=== PATIENT | female | born 1995 | race Hispanic/Latino ===

== ENCOUNTER 2021-08-01 09:30 | Emergency (ER) | payer OTHER ==
--- OUTSIDE RECORDS SUMMARY | 2021-08-01 09:36 | XMS REPORT | Continuity of Care Document ---
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 MD Acct: [id number] Dis Date: Status: DEP ER PHONE #: [phone] Exam Date: 09/28/2019 1849 FAX #: [phone] Reason: DECREASED MOVEMENTS EXAMS: CPTCODE: [id number] US BIOPHYS PROF [id number] REASON FOR EXAM: DECREASED MOVEMENTS EXAM ORDER DATE: 09/28/2019 6:08 PM Attending M.D.: Brennen Short MD PROCEDURE: - US BIOPHYS PROF FINDINGS: The cervix is closed. heart rate is 154 beats per minute.GLENROY is 14.6. presentation is cephalic. The placenta is anterior and grade 2. breathing movement score is 2/2 (at least one episode of at least 30 seconds durationduring a 30 minute observation) gross body movement score is 2/2 (3 discrete body/limb movements in a 30 minute observation) tone score is 2/2 (at least one episode of active extension and return to flexion and 30 minutes) amniotic fluid volume scored 2/2 (at least one pocket of fluid measuring 1 CM in 2 dimensions) IMPRESSION: A single viable IUP with biophysical profile score of 8/8 Location: [facility] Reported and signed by: Ang Dorado MD CC: Brennen Short MD; Adolfo Sanders Technologist: Walter Luis Trnscb Date/Time: 09/28/2019 (1922) DamianR.RR31 Orig Print D/T: S: 09/28/2019 (1925) Probe: PAGE 1 Signed [id number] 19:10:00 Test Item Value Reference Range Interpretation Comments GLUBED (test code = 113 mg/dL 74-106 H Performe d by certified GLUBED) 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 [facility] URINALYSIS [id number] 18:59:00 Test Item Value Reference Range Interpretation Comments UA COLOR (test code = YELLOW YELLOW COLU) UA APPEARANCE (test code Cloudy CLEAR A = APPU) UA GLUCOSE DIPSTICK (test NEGATIVE mg/dL NEGATIVE code = DGLUU) UA BILIRUBIN DIPSTICK NEGATIVE mg/dL NEGATIVE (test code = BILU) UA KETONE DIPSTICK (test NEGATIVE mg/dL NEGATIVE code = KETU) UA SPECIFIC GRAVITY (test 1.021 1.001-1.035 code = SGU) UA BLOOD DIPSTICK (test Negative mg/dL NEGATIVE code = LILIAM) UA PH DIPSTICK (test code 6.0 5.0-8.0 = PORFIRIO) UA PROTEIN DIPSTICK (test 70 (1+) mg/dL NEGATIVE A code = PROU) UA UROBILINIOGEN DIPSTICK Normal mg/dL NEGATIVE (test code = URO) UA NITRITE DIPSTICK (test NEGATIVE NEGATIVE code = KAY) UA LEUKOCYTE ESTERASE W 75 Viri/uL (1+) NEGATIVE A REFLEX (test code = Viri/uL LEUUR) UA WBC (test code = WBCU) 0-5 per HPF 0-5 UA RBC (test code = RBCU) 3-5 #/HPF 0-5 UA EPITHELIAL CELLS (test MANY per HPF FEW code = EPIU) UA BACTERIA (test code = MODERATE #/HPF NONE A BACU) UA MUCUS (test code = MODERATE #/LPF FEW A MUCU) UA AMORPHOUS SEDIMENT FEW #/LPF NONE (test code = AMORU) URINALYSIS [id number] 18:53:00 Test Item Value Reference Range Interpretation Comments UA COLOR (test code = YELLOW YELLOW COLU) UA APPEARANCE (test code Cloudy CLEAR A = APPU) UA GLUCOSE DIPSTICK (test NEGATIVE mg/dL NEGATIVE code = DGLUU) UA BILIRUBIN DIPSTICK NEGATIVE mg/dL NEGATIVE (test code = BILU) UA KETONE DIPSTICK (test NEGATIVE mg/dL NEGATIVE code = KETU) UA SPECIFIC GRAVITY (test 1.021 1.001-1.035 code = SGU) UA BLOOD DIPSTICK (test Negative mg/dL NEGATIVE code = LILIAM) UA PH DIPSTICK (test code 6.0 5.0-8.0 = PORFIRIO) UA PROTEIN DIPSTICK (test 70 (1+) mg/dL NEGATIVE A code = PROU) UA UROBILINIOGEN DIPSTICK Normal mg/dL NEGATIVE (test code = URO) UA NITRITE DIPSTICK (test NEGATIVE NEGATIVE code = KAY) UA LEUKOCYTE ESTERASE W 75 Viri/uL (1+) NEGATIVE A REFLEX (test code = Viri/uL LEUUR) UA WBC (test code = WBCU) per HPF 0-5 UA RBC (test code = RBCU) per HPF 0-5 UA EPITHELIAL CELLS (test per HPF Few code = EPIU) UA BACTERIA (test code = per HPF NONE BACU) URINALYSIS [id number] 18:53:00 Test Item Value Reference Range Interpretation Comments UA COLOR (test code = YELLOW YELLOW COLU) UA APPEARANCE (test code Cloudy CLEAR A = APPU) UA GLUCOSE DIPSTICK (test NEGATIVE mg/dL NEGATIVE code = DGLUU) UA BILIRUBIN DIPSTICK NEGATIVE mg/dL NEGATIVE (test code = BILU) UA KETONE DIPSTICK (test NEGATIVE mg/dL NEGATIVE code = KETU) UA SPECIFIC GRAVITY (test 1.021 1.001-1.035 code = SGU) UA BLOOD DIPSTICK (test Negative mg/dL NEGATIVE code = LILIAM) UA PH DIPSTICK (test code 6.0 5.0-8.0 = PORFIRIO) UA PROTEIN DIPSTICK (test 70 (1+) mg/dL NEGATIVE A code = PROU) UA UROBILINIOGEN DIPSTICK Normal mg/dL NEGATIVE (test code = URO) UA NITRITE DIPSTICK (test NEGATIVE NEGATIVE code = KAY) UA LEUKOCYTE ESTERASE W 75 Viri/uL (1+) NEGATIVE A REFLEX (test code = Viri/uL LEUUR) UA WBC (test code = WBCU) per HPF 0-5 UA RBC (test code = RBCU) per HPF 0-5 UA EPITHELIAL CELLS (test per HPF Few code = EPIU) UA BACTERIA (test code = per HPF NONE BACU) CBC W/AUTO [id number] 18:47:00 Test Item Value Reference Range Interpretation Comments WHITE BLOOD CELL (test code = 12.1 K/mm3 4.5-12.5 N WBC) RED BLOOD CELL (test code = 4.75 mill/mm3 3.7-5.2 N RBC) HEMOGLOBIN (test code = HGB) 11.5 gram/dL 11.5-15.5 N HEMATOCRIT (test code = HCT) 36.7 % 36.0-46.0 N MEAN CELL VOLUME (test code = 77.3 fL 80-98 L MCV) MEAN CELL HGB (test code = MCH) 24.2 picogram 27.0-33.0 L MEAN CELL HGB CONCETRATION 31.3 gram/dL 33.0-36.0 L (test code = MCHC) RED CELL DISTRIBUTION WIDTH 15.2 % 11.6-16.2 N (test code = RDW) RED CELL DISTRIBUTION WIDTH SD 42.0 fL 37.0-51.0 N (test code = RDW-SD) PLATELET COUNT (test code = 252 K/mm3 150-450 N PLT) MEAN PLATELET VOLUME (test code 9.6 fL 6.7-11.0 N = MPV) NEUTROPHIL % (test code = NT%) 79.8 % 39.0-69.0 H IMMATURE GRANULOCYTE % (test 0.5 % 0.0-5.0 N code = IG%) LYMPHOCYTE % (test code = LY%) 14.6 % 25.0-55.0 L MONOCYTE % (test code = MO%) 4.4 % 0.0-10.0 N EOSINOPHIL % (test code = EO%) 0.5 % 0.0-5.0 N BASOPHIL % (test code = BA%) 0.2 % 0.0-1.0 N NUCLEATED RBC % (test code = 0.0 % 0-0 N NRBC%) NEUTROPHIL # (test code = NT#) 9.66 K/mm3 1.8-7.7 H IMMATURE GRANULOCYTE # (test 0.06 x10 3/uL 0-0.03 H code = IG#) LYMPHOCYTE # (test code = LY#) 1.77 K/mm3 1.0-5.0 N MONOCYTE # (test code = MO#) 0.53 K/mm3 0-0.8 N EOSINOPHIL # (test code = EO#) 0.06 K/mm3 0.0-0.5 N BASOPHIL # (test code = BA#) 0.02 K/mm3 0.0-0.2 N NUCLEATED RBC # (test code = 0.00 K/mm3 0.0-0.1 N NRBC#) CBC W/AUTO [id number] 18:46:00 Test Item Value Reference Range Interpretation Comments WHITE BLOOD CELL (test code = K/mm3 4.5-12.5 WBC) RED BLOOD CELL (test code = RBC) mill/mm3 3.7-5.2 HEMOGLOBIN (test code = HGB) 11.5 gram/dL 11.5-15.5 N HEMATOCRIT (test code = HCT) 36.7 % 36.0-46.0 N MEAN CELL VOLUME (test code = fL 80-98 MCV) MEAN CELL HGB (test code = MCH) picogram 27.0-33.0 MEAN CELL HGB CONCETRATION (test gram/dL 33.0-36.0 code = MCHC) RED CELL DISTRIBUTION WIDTH % 11.6-16.2 (test code = RDW) RED CELL DISTRIBUTION WIDTH SD fL 37.0-51.0 (test code = RDW-SD) PLATELET COUNT (test code = PLT) 252 K/mm3 150-450 N MEAN PLATELET VOLUME (test code fL 6.7-11.0 = MPV) NEUTROPHIL % (test code = NT%) % 39.0-69.0 IMMATURE GRANULOCYTE % (test % 0.0-5.0 code = IG%) LYMPHOCYTE % (test code = LY%) % 25.0-55.0 MONOCYTE % (test code = MO%) % 0.0-10.0 EOSINOPHIL % (test code = EO%) % 0.0-5.0 BASOPHIL % (test code = BA%) % 0.0-1.0 NEUTROPHIL # (test code = NT#) K/mm3 1.8-7.7 LYMPHOCYTE # (test code = LY#) K/mm3 1.0-5.0 MONOCYTE # (test code = MO#) K/mm3 0-0.8 EOSINOPHIL # (test code = EO#) K/mm3 0.0-0.5 BASOPHIL # (test code = BA#) K/mm3 0.0-0.2 Coronavirus 2019 [id number] 15:43:00 Test Item Value Reference Range Interpretation Comments Coronavirus 2019 Confirmation (test Negative Negative code = [id number]) Coronavirus 2019 [id number] 15:43:00 Test Item Value Reference Range Interpretation Comments Coronavirus 2019 Confirmation (test Negative Negative code = [id number]) [id number] 11:59:00 Test Item Value Reference Range Interpretation Comments GLUBED (test code = 89 mg/dL 74-106 N Performe d by certified GLUBED) 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 [facility] [id number] 08:43:00 Test Item Value Reference Range Interpretation Comments GLUBED (test code = 99 mg/dL 74-106 N Performe d by certified GLUBED) 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 [facility] [id number] 06:31:00 Test Item Value Reference Range Interpretation Comments GLUBED (test code = 90 mg/dL 74-106 N Performe d by certified GLUBED) 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 [facility] - US BIOPHYS [id number] 19:26:00 Name: VALERIANO FAULKNER [facility] : 1995 Age[facility]S: 24 [facility] [address] [facility] Unit #: [id number] Loc: [place] [address] Phys: Hal Yo MD Acct: [id number] Dis Date: [id number] Status: DIS IN PHONE #: [phone] Exam Date: 09/16/2019 1841 FAX #: [phone] Reason: 33w EXAMS: CPTCODE: [id number] US BIOPHYS PROF [id number] REASON FOR EXAM: 33w EXAM ORDER DATE: 09/16/2019 6:05 PM Ordering: Hal Yo MD Attending:Adolfo Sanders MD Location:[facility] PROCEDURE: - US BIOPHYS PROF FINDINGS: The cervix is closed with the cervical canal length measured 4.2 cm heart rate is 150 beats per minute. GLENROY is 14.9 c m. presentation is cephalic. The placenta is anterior and is of grade 3. breathing movement score is 2/2 (at least one episode of at least 30 seconds duration during a 30 minute observation) gross body movement score is 2/2 (3 discrete body/limb movements in a 30 minute observation) tone score is 2/2 (at least one episode of active extension and return to flexion and 30 minutes) amniotic fluid volume scored 2/2 (at least one pocket of fluid measuring 1 CM in 2 dimensions) IMPRESSION: A single viable IUP with biophysical profile score of 8/8 at 192 Reported and signed by: Pramod Barton M.D.CC: Hal Yo MD; Adolfo Sanders Technologist: Jessica Flood RDMS Trnscb Date/Time: 09/16/2019 (1925) tDU Orig Print D/T: S: 09/16/2019 (1928) Probe: PAGE 1 Signed Report- US BIOPHYS [id number] 19:26:00 Name: VALERIANO FAULKNER [facility] : 1995 Age/S: 24 / F [address] Unit #: [id number] Loc: [place] [address] Phys: Hal Yo MD Acct: [id number] Dis Date: Status: ADM IN PHONE #: [phone] Exam Date: 09/16/2019 1841 FAX #: [phone] Reason: 33w EXAMS: CPTCODE: [id number] US BIOPHYS PROF [id number] REASON FOR EXAM: 33w EXAM ORDER DATE: 09/16/2019 6:05 PM Ordering: Hal Yo MD Attending:Adolfo Sanders MD Location:[facility] PROCEDURE: - US BIOPHYS PROF FINDINGS: The cervix is closed with the cervical canal length measured 4.2 cm heart rate is 150 beats per minute. GLENROY is 14.9 cm. presentation is cephalic. The placenta is anterior and is of grade 3. breathing movement score is 2/2 (at least one episode of at least 30 seconds duration during a 30 minute observation) gross body movement score is 2/2 (3 discrete body/limb movements in a 30 minute observation) tone score is 2/2 (at least one episode of active extension and return to flexion and 30 minutes) amniotic fluid volume scored 2/2 (at least one pocket of fluid measuring 1 CM in 2 dimensions) IMPRESSION: A single viable IUP with biophysical profile score of 8/8 at 1926 Reported and signed by: Pramod Barton M.D.CC: Hal Yo MD; Adolfo Sanders Technologist: Jessica Flood RDMS Trnscb Date/Time: 09/16/2019 (1925) [email or web address] Orig Print D/T: S: 09/16/2019 (1928) Probe: PAGE 1 Signed Report- XR CHEST 1 [id number] 16:12:00 FAX: Prakash Conn MD [phone] [place]: B St: DIS FAX: Stephanie Myers [phone] Name: VALERIANO FAULKNER [facility] : 1995 Age/S: 24/F [address] Unit #: [id number] Loc: V.2006 [place] [address] Phys: Prakash Conn MD Acct: [id number] Dis Date: [id number] Status: DIS IN PHONE #: [phone] Exam Date: 09/16/2019 1607 FAX #: [phone] Reason: Shortness of Breath EXAMS: CPT CODE: [id number] XR CHEST 1 V [id number] REASON FOR EXAM: Shortness of Breath EXAM ORDER DATE: 09/16/2019 2:41 PM Ordering: Prakash Conn MD Attending:Prakash Conn MD Location:[facility] PROCEDURE: - XR CHEST 1 V COMPARISON: FINDINGS: Portable AP frontal view of the chest obtained at 4:07 PM shows clear lungs without evidence of consolidation. There is no evidence of effusion. The heart size is within normal limits. Pulmonary vasculatures are unremarkable. IMPRESSION: No active disease. at 1612 Reported and signed by: Pramod Barton M.D. CC: Prakash Conn MD; Adolfo Sanders Technologist: Kelly Dallas(R) Trnscrd Date/Time/By: 09/16/2019 (706) : By: JenniferVTL Orig Print D/T: S: 09/16/2019 (3329) PAGE 1 Signed Report- XR CHEST 1 [id number] 16:12:00 FAX: Praaksh Conn MD [phone] [place]: B St: REG FAX: Stephanie Myers [phone] Name: VALERIANO FAULKNER [facility] : 1995 Age/S: 24/F [address] [facility] Unit #: [id number] Loc: [place] [address] Phys: Prakash Conn MD Acct: [id number] Dis Date: Status: REG ER PHONE #: [phone] Exam Date: 09/16/2019 1607 FAX #: [phone] Reason: Shortness of Breath EXAMS: CPT CODE: [id number] XR CHEST 1 V [id number] REASON FOR EXAM: Shortness of Breath EXAM ORDER DATE: 09/16/2019 2:41 PM Ordering: Prakash Conn MD Attending:Prakash Conn MD Location:[facility] PROCEDURE: - XR CHEST 1 V COMPARISON: FINDINGS: Portable AP frontal view of the chest obtained at 4:07 PM shows clear lungs without evidence of consolidation. There is no evidence of effusion. The heart size is within normal limits. Pulmonary vasculatures are unremarkable. IMPRESSION: No active disease. at 1612 Reported and signed by: Pramod Barton M.D. CC: Prakash Conn MD; Adolfo Sanders Technologist: Kelly Dallas(R) Trnscrd Date/Time/By: 09/16/2019 (9692) : By: JenniferVTL Orig Print D/T: S: 09/16/2019 (6996) PAGE 1 Signed ReportB-TYPE NATRIURETIC [id number] 16:08:00 Test Item Value Reference Range Interpretation Comments B-TYPE NATRIURETIC PEPTIDE 23.89 pgram/mL 0-100 N (test code = BNP) BASIC METABOLIC [id number] 16:06:00 Test Item Value Reference Range Interpretation Comments SODIUM (test code = 141 mmol/L 136-145 N NA) POTASSIUM (test code 3.6 mmol/L 3.5-5.1 N = K) CHLORIDE (test code = 111.0 mmol/L 98-107 H CL) CARBON DIOXIDE (test 22.0 mmol/L 21-32 N code = CO2) ANION GAP (test code 11.6 10-20 N = GAP) GLUCOSE (test code = 127 mg/dL 74-106 H GLU) BLOOD UREA NITROGEN 7 mg/dL 7-18 N (test code = BUN) GLOMERULAR FILTRATION > 60 mL/min >=60 Estima octavio GFR by RATE (test code = using Ray fied MDRD GFR) formula.Chronic kidney disease is defined as eith er kidney damageor GFR <60 mL/min/1.73 m2 for >3 months. CREATININE (test code 0.50 mg/dL 0.55-1.02 L Note change in = CREAT) reference range due to change in reagent. BUN/CREATININE RATIO 13.2 10-20 N (test code = BUN/CREA) CALCIUM (test code = 8.7 mg/dL 8.5-10.1 N CA) HCG SERUM [id number] 16:06:00 Test Item Value Reference Range Interpretation Comments HCG SERUM BETA 8239.0 mIU/mL 0-3 H Interfering substances (test code = present in the serum of HCG) somepatients ma y cause a false-positive result in this assay.Ques tionable elevations in s maria r hCG should be confi rmedwith a urine hCG. Lenz spected Trophoblastic N eoplasms shouldnot be di agnosed based on serun hCG/beta hCG alone. They must be confirmed by cl inical history and tis ankit diagnosis.INTER PRETATION :B-HCG LEVELS < 5 SHOULD BE CONSIDERED A S "NEGATIVE." *WH EN BODERLINE RESUL TS ARE ENCOUNTERED,PAT IENT SAMPLESSHOULD B E REDRAWN 48 HOURS. 0-1 WEEKS AFTER CONCEPTIO N 5-50 MIU/ML1-2 WEEKS AFTER CONCEPTION 50-500 MIU/ ML2-3 WEEKS AFTER CON CEPTION 100 - 5,000 MIU/ML3-4 WEEKS AFTER CONCEPTION 500-10,000 MIU /ML4-5 WEEKS AFTER CON CEPTION 1000 -50 ,000 MIU/ML5-6 WEEKS AFTER CONCEPTION 10,000-100,000 MIU/ML6-8 WEEKS AFTER CONCEPTION 15,000- 200,000 MIU/ML2-3 MONTH S AFTER CONCEPTION 10,000-100,000 MIU/ML [id number] 16:06:00 Test Item Value Reference Range Interpretation Comments TROPONIN-I (test code = TROPI) <0.015 ng/mL 0-0.045 N [id number] 15:54:00 Test Item Value Reference Range Interpretation Comments D-DIMER (test 851.00 ng/mLFEU 0-500 HH Results jaison led to code = DDIMER) EVLIRA EncinasLAB.HD1 09/16/19 1554Cr itical results verifie d and read back by Nurse? YClinical Cut-off value f or D-Dimer is 500 ng/mL FE U. Comment: The In novance D-Dimer assay i s intended for use asan ai d in the diagnosis of ve nous thromboembolism (VTE)[deep vein thrombosis (DVT ) or pulmonary embol ism (PE)].The measu rement of D-Dimer should not be used as an aid inthe diagnosis of VT E, in patient with: -Therapeutic do se anticoagulant t herapy for >24 hours -Fib rinolytic therapy within previous 7 days -Trauma o r surgery within previous 4 weeks -Disseminated malignancies - Aortic aneurysm -Seps is, severe infections, pne umonia, severe skin i nfections -Liver cirrhosi s - LACTIC [id number] 15:52:00 Test Item Value Reference Range Interpretation Comments LACTIC ACID (test code = LACT) 1.1 mmol/L 0.4-1.9 N BASIC METABOLIC [id number] 15:49:00 Test Item Value Reference Range Interpretation Comments SODIUM (test code = NA) 141 mmol/L 136-145 N POTASSIUM (test code = K) 3.6 mmol/L 3.5-5.1 N CHLORIDE (test code = CL) 111.0 mmol/L 98-107 H CARBON DIOXIDE (test code = CO2) mmol/L 21-32 ANION GAP (test code = GAP) 10-20 GLUCOSE (test code = GLU) mg/dL 74-106 BLOOD UREA NITROGEN (test code = mg/dL 7-18 BUN) GLOMERULAR FILTRATION RATE (test mL/min >=60 code = GFR) CREATININE (test code = CREAT) mg/dL 0.55-1.02 BUN/CREATININE RATIO (test code 10-20 = BUN/CREA) CALCIUM (test code = CA) mg/dL 8.5-10.1 HCG SERUM [id number] 15:49:00 Test Item Value Reference Range Interpretation Comments HCG SERUM BETA (test code = HCG) mIU/mL 0-3 [id number] 15:49:00 Test Item Value Reference Range Interpretation Comments TROPONIN-I (test code = TROPI) ng/mL 0-0.045 COVID 19 INHOUSE [id number] 15:37:00 Test Item Value Reference Range Interpretation Comments COVID 19 INHOUSE AG (test code = NEGATIVE [id number]) CBC W/O [id number] 15:36:00 Test Item Value Reference Range Interpretation Comments WHITE BLOOD CELL (test code = 10.4 K/mm3 4.5-12.5 N WBC) RED BLOOD CELL (test code = 4.33 mill/mm3 3.7-5.2 N RBC) HEMOGLOBIN (test code = HGB) 10.5 gram/dL 11.5-15.5 L HEMATOCRIT (test code = HCT) 33.1 % 36.0-46.0 L MEAN CELL VOLUME (test code = 76.4 fL 80-98 L MCV) MEAN CELL HGB (test code = MCH) 24.2 picogram 27.0-33.0 L MEAN CELL HGB CONCETRATION 31.7 gram/dL 33.0-36.0 L (test code = MCHC) RED CELL DISTRIBUTION WIDTH 14.9 % 11.6-16.2 N (test code = RDW) PLATELET COUNT (test code = 242 K/mm3 150-450 N PLT) MEAN PLATELET VOLUME (test code 9.9 fL 6.7-11.0 N = MPV) CBC W/O [id number] 15:31:00 Test Item Value Reference Range Interpretation Comments WHITE BLOOD CELL (test code = WBC) K/mm3 4.5-12.5 RED BLOOD CELL (test code = RBC) mill/mm3 3.7-5.2 HEMOGLOBIN (test code = HGB) gram/dL 11.5-15.5 HEMATOCRIT (test code = HCT) % 36.0-46.0 MEAN CELL VOLUME (test code = MCV) fL 80-98 MEAN CELL HGB (test code = MCH) picogram 27.0-33.0 MEAN CELL HGB CONCETRATION (test gram/dL 33.0-36.0 code = MCHC) RED CELL DISTRIBUTION WIDTH (test % 11.6-16.2 code = RDW) PLATELET COUNT (test code = PLT) 242 K/mm3 150-450 N MEAN PLATELET VOLUME (test code = fL 6.7-11.0 MPV) COVID 19 Asymptomatic IH [id number] 13:39:00 Test Item Value Reference Range Interpretation Comments COVID 19 Asymptomatic IH AG (test NEGATIVE code = COVNONPUIAG) - US BIOPHYS [id number] 12:02:00 Name: VALERIANO FAULKNER [facility] : 1995 Age[facility]S: 23 [facility] [address] [facility] #: [id number] Loc: [place] [address] Phys: Hal Yo MD Acct: [id number] Dis Date: Status: [facility] ER PHONE #: [phone] Exam Date: 08/15/2019 1150 FAX #: [phone] Reason: 29w EXAMS: CPTCODE: [id number] US BIOPHYS PROF [id number] HISTORY: Vomiting. COMPARISON: April 08, 2019. Location: [facility]. 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 GLENROY is normal at 16 cm. IMPRESSION: Normal biophysical profile score of 8 out of 8 with normal GLENROY of 16 cm. Cephalic presentation. at 1202 Reported and signed by: Christopher Rand M.D. CC: Hal Yo MD; Adolfo Sanders Technologist: CASEY DAVID RT(R),RDMS Trnnhb Date/Time: 08/15/2019 (1202) t.SDR.TH4 Orig Print D/T: S: 08/15/2019 (1205) Probe: PAGE 1 Signed Report- US BIOPHYS [id number] 12:02:00 Name: VALERIANO FAULKNER [facility] : 1995 Age/S: 23 / F [address] Unit #: [id number] Loc: [place] [address] Phys: Hal Yo MD Acct: [id number] Dis Date: Status: [facility] ER PHONE #: [phone] Exam Date: 08/15/2019 1150 FAX #: [phone] Reason: 29w EXAMS: CPTCODE: [id number] US BIOPHYS PROF [id number] HISTORY: Vomiting. COMPARISON: April 08, 2019. Location: [facility]. 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 GLENROY is normal at 16 cm. IMPRESSION: Normal biophysical profile score of 8 out of 8 with normal GLENROY of 16 cm. Cephalic presentation. at 1202 Reported and signed by: Christopher Rand M.D. CC: Hal Yo MD; Adolfo Sanders Technologist: CASEY DAVID(R),DUKEMN Trnnhb Date/Time: 08/15/2019 (1202) t.MIMIR.TH4 Orig Print D/T: S: 08/15/2019 (1131) Probe: PAGE 1 Signed ReportCOMPREHENSIVE METABOLIC [id number] 11:55:00 Test Item Value Reference Range Interpretation Comments SODIUM (test code = 137 mmol/L 136-145 N NA) POTASSIUM (test code = 4.1 mmol/L 3.5-5.1 N K) CHLORIDE (test code = 107.0 mmol/L 98-107 N CL) CARBON DIOXIDE (test 22.0 mmol/L 21-32 N code = CO2) ANION GAP (test code = 12.1 10-20 N GAP) GLUCOSE (test code = 123 mg/dL 74-106 H GLU) BLOOD UREA NITROGEN 11 mg/dL 7-18 N (test code = BUN) GLOMERULAR FILTRATION > 60 mL/min >=60 Estima octavio GFR by RATE (test code = GFR) using Modified MDRD formula.Chronic kidney disease is defined as eith er kidney damageor GFR <60 mL/min/1.73 m2 for >3 months. CREATININE (test code 0.60 mg/dL 0.55-1.02 N Note change in = CREAT) reference range due to change in reagent. BUN/CREATININE RATIO 16.9 10-20 N (test code = BUN/CREA) TOTAL PROTEIN (test 6.6 gram/dL 6.4-8.2 N code = PROT) ALBUMIN (test code = 2.4 g/dL 3.4-5.0 L ALB) GLOBULIN (test code = 4.2 gram/dL 2.7-4.2 N GLOB) ALBUMIN/GLOBULIN RATIO 0.6 0.75-1.50 L (test code = A/G) CALCIUM (test code = 9.0 mg/dL 8.5-10.1 N CA) BILIRUBIN TOTAL (test 0.10 mg/dL 0.0-1.0 N code = BILT) SGOT/AST (test code = 13 IUnit/L 15-37 L AST) SGPT/ALT (test code = 15 IUnit/L 12-78 N ALT) ALKALINE PHOSPHATASE 82 IUnit/L 45-117 N Note change in TOTAL (test code = reference range due ALKP) to change in reagent. COMPREHENSIVE METABOLIC [id number] 11:45:00 Test Item Value Reference Range Interpretation Comments SODIUM (test code = NA) 137 mmol/L 136-145 N POTASSIUM (test code = K) 4.1 mmol/L 3.5-5.1 N CHLORIDE (test code = CL) 107.0 mmol/L 98-107 N CARBON DIOXIDE (test code = CO2) mmol/L 21-32 ANION GAP (test code = GAP) 10-20 GLUCOSE (test code = GLU) mg/dL 74-106 BLOOD UREA NITROGEN (test code = mg/dL 7-18 BUN) GLOMERULAR FILTRATION RATE (test mL/min >=60 code = GFR) CREATININE (test code = CREAT) mg/dL 0.55-1.02 BUN/CREATININE RATIO (test code 10-20 = BUN/CREA) TOTAL PROTEIN (test code = PROT) gram/dL 6.4-8.2 ALBUMIN (test code = ALB) g/dL 3.4-5.0 GLOBULIN (test code = GLOB) gram/dL 2.7-4.2 ALBUMIN/GLOBULIN RATIO (test 0.75-1.50 code = A/G) CALCIUM (test code = CA) mg/dL 8.5-10.1 BILIRUBIN TOTAL (test code = mg/dL 0.0-1.0 BILT) SGOT/AST (test code = AST) IUnit/L 15-37 SGPT/ALT (test code = ALT) IUnit/L 12-78 ALKALINE PHOSPHATASE TOTAL (test IUnit/L 45-117 code = ALKP) CBC W/AUTO [id number] 11:43:00 Test Item Value Reference Range Interpretation Comments WHITE BLOOD CELL (test code = 16.9 K/mm3 4.5-12.5 H WBC) RED BLOOD CELL (test code = 4.58 mill/mm3 3.7-5.2 N RBC) HEMOGLOBIN (test code = HGB) 11.4 gram/dL 11.5-15.5 L HEMATOCRIT (test code = HCT) 35.3 % 36.0-46.0 L MEAN CELL VOLUME (test code = 77.1 fL 80-98 L MCV) MEAN CELL HGB (test code = MCH) 24.9 picogram 27.0-33.0 L MEAN CELL HGB CONCETRATION 32.3 gram/dL 33.0-36.0 L (test code = MCHC) RED CELL DISTRIBUTION WIDTH 14.2 % 11.6-16.2 N (test code = RDW) RED CELL DISTRIBUTION WIDTH SD 39.2 fL 37.0-51.0 N (test code = RDW-SD) PLATELET COUNT (test code = 270 K/mm3 150-450 N PLT) MEAN PLATELET VOLUME (test code 10.4 fL 6.7-11.0 N = MPV) NEUTROPHIL % (test code = NT%) 83.4 % 39.0-69.0 H IMMATURE GRANULOCYTE % (test 0.5 % 0.0-5.0 N code = IG%) LYMPHOCYTE % (test code = LY%) 11.4 % 25.0-55.0 L MONOCYTE % (test code = MO%) 3.8 % 0.0-10.0 N EOSINOPHIL % (test code = EO%) 0.7 % 0.0-5.0 N BASOPHIL % (test code = BA%) 0.2 % 0.0-1.0 N NUCLEATED RBC % (test code = 0.0 % 0-0 N NRBC%) NEUTROPHIL # (test code = NT#) 14.08 K/mm3 1.8-7.7 H IMMATURE GRANULOCYTE # (test 0.09 x10 3/uL 0-0.03 H code = IG#) LYMPHOCYTE # (test code = LY#) 1.93 K/mm3 1.0-5.0 N MONOCYTE # (test code = MO#) 0.64 K/mm3 0-0.8 N EOSINOPHIL # (test code = EO#) 0.12 K/mm3 0.0-0.5 N BASOPHIL # (test code = BA#) 0.03 K/mm3 0.0-0.2 N NUCLEATED RBC # (test code = 0.00 K/mm3 0.0-0.1 N NRBC#) MANUAL DIFF REQUIRED (test code NO = MDIFF) [id number] 16:03:00 RUN DATE: 04/11/19 [employer] [facility] PAGE 1 RUN TIME: 1603 Specimen Inquiry RUN USER: INTERFACE PATIENT: VALERIANO FAULKNER LOC: KyreeOBS U #: [id number] AGE/SX: ROOM: [facility] RE04/10/19[facility] DR: Tisha Vicente MD : 96 BED: A DIS: 04/11/19 STATUS: DIS IN TLOC: SPEC #: [id number] RECD: 04/10/19 STATUS: BOWEN REQ #: [id number] CYNTHIA: 04/09/19-[address] [facility] [address]: Tisha Vicente MD ENTERED: 04/10/19 SP TYPE: YOSELIN PAIGE DR: No Primary or Family Physician Ruddy Coppola MD,Adolfo Verma MD, MDORDERED: GROSS COPIES TO: No Primary or Family Physician Tisha Vicente MD [address] [place] [address], [place] [address] Ruddy Coppola MD [address] [place] [address] Rakesh Stout MD [address] [place], [place] [address] Adolfo Sanders MD [address] [place] [address] MARKERS: ABNORMAL TISSUE, GALLBLADDER PROCEDURES: GROSS (04/11/19-144) TISSUES: GALLBLADDER, NOS CLINICAL HISTORY COLLECTION DATE: 04/09/19 CHOLECYSTITIS CONTINUED ON NEXT PAGE RUN DATE: 04/11/19 [employer]aphne [employer] [facility] PAGE 2 RUN TIME: 1603 Specimen Inquiry RUN USER: INTERFACE SPEC #: [id number] PATIENT: VALERIANO FAULKNER #[id number] (Continued)--------- --- FINAL DIAGNOSIS Gallbladder, cholecystectomy: CHRONIC CHOLECYSTITIS CHOLESTEROLOSIS CHOLELITHIASIS NEGATIVE FOR MALIGNANCY FA/sm A 21621 MACROSCOPIC The specimen is received in formalin, labeled with the patient's name, and identified as "gallbladder". It consists of a previously opened gallbladder measuring 6.5 cm in length and up to 2.5 cm in diameter. There is a gallstone measuring 1.5 cm in greatest dimension. No impacted stone in the cystic duct is present. The specimen is opened to reveal joseph light green mucosa with yellow streaks. The wall thickness is up to 0.5 cm. No mass is identified. Cement Block Maker section including cystic duct margin is submitted in a single cassette. GROSS PERFORMED AT [facility] [address] [place] [address] (p)[phone] MICROSCOPIC All of the stains, including any controls performed, stain appropriately. MICROSCOPIC PERFORMED AT [facility] [address] [place] [address] [phone])[phone] PERFORMING SITE Diagnosis performedat: [facility], [place] [address] [place], [place] [address] CONTINUED ON NEXT PAGE RUN DATE: 04/11/19 [facility] PAGE 3RUN TIME: 1603 Specimen Inquiry RUN USER: INTERFACE SPEC #: [id number] PATIENT: VALERIANO FAULKNER #[id number] (Continued) Signed SIGNATURE ON FILE Festus Otero MD 04/11/19 1603 END OF REPORT COMPREHENSIVE METABOLIC [id number] 06:02:00 Test Item Value Reference Range Interpretation Comments SODIUM (test code = 141 mmol/L 136-145 N NA) POTASSIUM (test code = 3.5 mmol/L 3.5-5.1 N K) CHLORIDE (test code = 110.0 mmol/L 98-107 H CL) CARBON DIOXIDE (test 24.0 mmol/L 21-32 N code = CO2) ANION GAP (test code = 10.5 10-20 N GAP) GLUCOSE (test code = 103 mg/dL 74-106 N GLU) BLOOD UREA NITROGEN 8 mg/dL 7-18 N (test code = BUN) GLOMERULAR FILTRATION > 60 mL/min >=60 Estima octavio GFR by RATE (test code = GFR) using Modified MDRD formula.Chronic kidney disease is defined as eith er kidney damageor GFR <60 mL/min/1.73 m2 for >3 months. CREATININE (test code 0.60 mg/dL 0.55-1.02 N Note change in = CREAT) reference range due to change in reagent. BUN/CREATININE RATIO 13.3 10-20 N (test code = BUN/CREA) TOTAL PROTEIN (test 6.0 gram/dL 6.4-8.2 L code = PROT) ALBUMIN (test code = 2.4 g/dL 3.4-5.0 L ALB) GLOBULIN (test code = 3.6 gram/dL 2.7-4.2 N GLOB) ALBUMIN/GLOBULIN RATIO 0.7 0.75-1.50 L (test code = A/G) CALCIUM (test code = 7.7 mg/dL 8.5-10.1 L CA) BILIRUBIN TOTAL (test 0.20 mg/dL 0.0-1.0 N code = BILT) SGOT/AST (test code = 15 IUnit/L 15-37 N AST) SGPT/ALT (test code = 20 IUnit/L 12-78 N ALT) ALKALINE PHOSPHATASE 44 IUnit/L 45-117 L Note change in TOTAL (test code = reference range due ALKP) to change in reagent. CBC W/AUTO [id number] 05:51:00 Test Item Value Reference Range Interpretation Comments WHITE BLOOD CELL (test code = 10.4 K/mm3 4.5-12.5 N WBC) RED BLOOD CELL (test code = 3.65 mill/mm3 3.7-5.2 L RBC) HEMOGLOBIN (test code = HGB) 9.5 gram/dL 11.5-15.5 L HEMATOCRIT (test code = HCT) 29.4 % 36.0-46.0 L MEAN CELL VOLUME (test code = 80.5 fL 80-98 N MCV) MEAN CELL HGB (test code = MCH) 26.0 picogram 27.0-33.0 L MEAN CELL HGB CONCETRATION 32.3 gram/dL 33.0-36.0 L (test code = MCHC) RED CELL DISTRIBUTION WIDTH 13.7 % 11.6-16.2 N (test code = RDW) RED CELL DISTRIBUTION WIDTH SD 39.3 fL 37.0-51.0 N (test code = RDW-SD) PLATELET COUNT (test code = 215 K/mm3 150-450 PLT) MEAN PLATELET VOLUME (test code 10.2 fL 6.7-11.0 N = MPV) NEUTROPHIL % (test code = NT%) 66.9 % 39.0-69.0 N IMMATURE GRANULOCYTE % (test 0.4 % 0.0-5.0 N code = IG%) LYMPHOCYTE % (test code = LY%) 26.4 % 25.0-55.0 N MONOCYTE % (test code = MO%) 5.6 % 0.0-10.0 N EOSINOPHIL % (test code = EO%) 0.4 % 0.0-5.0 N BASOPHIL % (test code = BA%) 0.3 % 0.0-1.0 N NUCLEATED RBC % (test code = 0.0 % 0-0 N NRBC%) NEUTROPHIL # (test code = NT#) 6.93 K/mm3 1.8-7.7 N IMMATURE GRANULOCYTE # (test 0.04 x10 3/uL 0-0.03 H code = IG#) LYMPHOCYTE # (test code = LY#) 2.74 K/mm3 1.0-5.0 N MONOCYTE # (test code = MO#) 0.58 K/mm3 0-0.8 N EOSINOPHIL # (test code = EO#) 0.04 K/mm3 0.0-0.5 N BASOPHIL # (test code = BA#) 0.03 K/mm3 0.0-0.2 N NUCLEATED RBC # (test code = 0.00 K/mm3 0.0-0.1 N NRBC#) MANUAL DIFF REQUIRED (test code NO = MDIFF) [id number] 05:46:00 Test Item Value Reference Range Interpretation Comments GLYCOSYLATED HEMOGLOBIN 5.6 % HbA1 HERMINIO FLOWERS DIAGNOSIS: (HA1C) (test code = HbA1C GLYHGB) (%) ----- ----- Diab etic >6.4Prediabetes 5.7 - 6.4Normal <5.7 ESTIMATED AVERAGE 114 MG/DL GLUCOSE (test code = EAG) COMPREHENSIVE METABOLIC [id number] 05:17:00 Test Item Value Reference Range Interpretation Comments SODIUM (test code = 139 mmol/L 136-145 N NA) POTASSIUM (test code = 4.1 mmol/L 3.5-5.1 N K) CHLORIDE (test code = 108.0 mmol/L 98-107 H CL) CARBON DIOXIDE (test 23.0 mmol/L 21-32 N code = CO2) ANION GAP (test code = 12.1 10-20 N GAP) GLUCOSE (test code = 168 mg/dL 74-106 H GLU) BLOOD UREA NITROGEN 4 mg/dL 7-18 L (test code = BUN) GLOMERULAR FILTRATION > 60 mL/min >=60 Estima octavio GFR by RATE (test code = GFR) using Modified MDRD formula.Chronic kidney disease is defined as [facility] kidney damageor GFR <60 mL/min/1.73 m2 for >3 months. CREATININE (test code 0.60 mg/dL 0.55-1.02 N Note change in = CREAT) reference range due to change in reagent. BUN/CREATININE RATIO 6.7 10-20 L (test code = BUN/CREA) TOTAL PROTEIN (test 6.1 gram/dL 6.4-8.2 L code = PROT) ALBUMIN (test code = 2.7 g/dL 3.4-5.0 L ALB) GLOBULIN (test code = 3.4 gram/dL 2.7-4.2 N GLOB) ALBUMIN/GLOBULIN RATIO 0.8 0.75-1.50 N (test code = A/G) CALCIUM (test code = 7.8 mg/dL 8.5-10.1 L CA) BILIRUBIN TOTAL (test 0.40 mg/dL 0.0-1.0 N code = BILT) SGOT/AST (test code = 19 IUnit/L 15-37 N AST) SGPT/ALT (test code = 17 IUnit/L 12-78 N ALT) ALKALINE PHOSPHATASE 54 IUnit/L 45-117 N Note change in TOTAL (test code = reference range due ALKP) to change in reagent. COMPREHENSIVE METABOLIC [id number] 05:09:00 Test Item Value Reference Range Interpretation Comments SODIUM (test code = NA) 139 mmol/L 136-145 N POTASSIUM (test code = K) 4.1 mmol/L 3.5-5.1 N CHLORIDE (test code = CL) 108.0 mmol/L 98-107 H CARBON DIOXIDE (test code = CO2) mmol/L 21-32 ANION GAP (test code = GAP) 10-20 GLUCOSE (test code = GLU) mg/dL 74-106 BLOOD UREA NITROGEN (test code = mg/dL 7-18 BUN) GLOMERULAR FILTRATION RATE (test mL/min >=60 code = GFR) CREATININE (test code = CREAT) mg/dL 0.55-1.02 BUN/CREATININE RATIO (test code 10-20 = BUN/CREA) TOTAL PROTEIN (test code = PROT) gram/dL 6.4-8.2 ALBUMIN (test code = ALB) g/dL 3.4-5.0 GLOBULIN (test code = GLOB) gram/dL 2.7-4.2 ALBUMIN/GLOBULIN RATIO (test 0.75-1.50 code = A/G) CALCIUM (test code = CA) mg/dL 8.5-10.1 BILIRUBIN TOTAL (test code = mg/dL 0.0-1.0 BILT) SGOT/AST (test code = AST) IUnit/L 15-37 SGPT/ALT (test code = ALT) IUnit/L 12-78 ALKALINE PHOSPHATASE TOTAL (test IUnit/L 45-117 code = ALKP) CBC W/AUTO [id number] 04:49:00 Test Item Value Reference Range Interpretation Comments WHITE BLOOD CELL (test code = 11.1 K/mm3 4.5-12.5 N WBC) RED BLOOD CELL (test code = 4.27 mill/mm3 3.7-5.2 N RBC) HEMOGLOBIN (test code = HGB) 10.9 gram/dL 11.5-15.5 L HEMATOCRIT (test code = HCT) 33.6 % 36.0-46.0 L MEAN CELL VOLUME (test code = 78.7 fL 80-98 L MCV) MEAN CELL HGB (test code = MCH) 25.5 picogram 27.0-33.0 L MEAN CELL HGB CONCETRATION 32.4 gram/dL 33.0-36.0 L (test code = MCHC) RED CELL DISTRIBUTION WIDTH 13.2 % 11.6-16.2 N (test code = RDW) RED CELL DISTRIBUTION WIDTH SD 37.4 fL 37.0-51.0 N (test code = RDW-SD) PLATELET COUNT (test code = 267 K/mm3 150-450 N PLT) MEAN PLATELET VOLUME (test code 9.9 fL 6.7-11.0 N = MPV) NEUTROPHIL % (test code = NT%) 90.0 % 39.0-69.0 H IMMATURE GRANULOCYTE % (test 0.5 % 0.0-5.0 N code = IG%) LYMPHOCYTE % (test code = LY%) 6.7 % 25.0-55.0 L MONOCYTE % (test code = MO%) 2.7 % 0.0-10.0 N EOSINOPHIL % (test code = EO%) 0.0 % 0.0-5.0 N BASOPHIL % (test code = BA%) 0.1 % 0.0-1.0 N NUCLEATED RBC % (test code = 0.0 % 0-0 N NRBC%) NEUTROPHIL # (test code = NT#) 9.99 K/mm3 1.8-7.7 H IMMATURE GRANULOCYTE # (test 0.05 x10 3/uL 0-0.03 H code = IG#) LYMPHOCYTE # (test code = LY#) 0.74 K/mm3 1.0-5.0 L MONOCYTE # (test code = MO#) 0.30 K/mm3 0-0.8 N EOSINOPHIL # (test code = EO#) 0.00 K/mm3 0.0-0.5 N BASOPHIL # (test code = BA#) 0.01 K/mm3 0.0-0.2 N NUCLEATED RBC # (test code = 0.00 K/mm3 0.0-0.1 N NRBC#) MANUAL DIFF REQUIRED (test code NO = MDIFF) COMPREHENSIVE METABOLIC [id number] 07:11:00 Test Item Value Reference Range Interpretation Comments SODIUM (test code = 140 mmol/L 136-145 N NA) POTASSIUM (test code = 3.6 mmol/L 3.5-5.1 N K) CHLORIDE (test code = 109.0 mmol/L 98-107 H CL) CARBON DIOXIDE (test 24.0 mmol/L 21-32 N code = CO2) ANION GAP (test code = 10.6 10-20 N GAP) GLUCOSE (test code = 89 mg/dL 74-106 N GLU) BLOOD UREA NITROGEN 6 mg/dL 7-18 L (test code = BUN) GLOMERULAR FILTRATION > 60 mL/min >=60 Estima octavio GFR by RATE (test code = GFR) using Modified MDRD formula.Chronic kidney disease is defined as eith er kidney damageor GFR <60 mL/min/1.73 m2 for >3 months. CREATININE (test code 0.60 mg/dL 0.55-1.02 N Note change in = CREAT) reference range due to change in reagent. BUN/CREATININE RATIO 10.0 10-20 N (test code = BUN/CREA) TOTAL PROTEIN (test 5.5 gram/dL 6.4-8.2 L code = PROT) ALBUMIN (test code = 2.4 g/dL 3.4-5.0 L ALB) GLOBULIN (test code = 3.1 gram/dL 2.7-4.2 N GLOB) ALBUMIN/GLOBULIN RATIO 0.8 0.75-1.50 N (test code = A/G) CALCIUM (test code = 7.3 mg/dL 8.5-10.1 L CA) BILIRUBIN TOTAL (test 0.40 mg/dL 0.0-1.0 N code = BILT) SGOT/AST (test code = 7 IUnit/L 15-37 L AST) SGPT/ALT (test code = 11 IUnit/L 12-78 L ALT) ALKALINE PHOSPHATASE 43 IUnit/L 45-117 L Note change in TOTAL (test code = reference range due ALKP) to change in reagent. COMPREHENSIVE METABOLIC [id number] 07:04:00 Test Item Value Reference Range Interpretation Comments SODIUM (test code = NA) 140 mmol/L 136-145 N POTASSIUM (test code = K) 3.6 mmol/L 3.5-5.1 N CHLORIDE (test code = CL) 109.0 mmol/L 98-107 H CARBON DIOXIDE (test code = CO2) mmol/L 21-32 ANION GAP (test code = GAP) 10-20 GLUCOSE (test code = GLU) mg/dL 74-106 BLOOD UREA NITROGEN (test code = mg/dL 7-18 BUN) GLOMERULAR FILTRATION RATE (test mL/min >=60 code = GFR) CREATININE (test code = CREAT) mg/dL 0.55-1.02 BUN/CREATININE RATIO (test code 10-20 = BUN/CREA) TOTAL PROTEIN (test code = PROT) gram/dL 6.4-8.2 ALBUMIN (test code = ALB) g/dL 3.4-5.0 GLOBULIN (test code = GLOB) gram/dL 2.7-4.2 ALBUMIN/GLOBULIN RATIO (test 0.75-1.50 code = A/G) CALCIUM (test code = CA) mg/dL 8.5-10.1 BILIRUBIN TOTAL (test code = mg/dL 0.0-1.0 BILT) SGOT/AST (test code = AST) IUnit/L 15-37 SGPT/ALT (test code = ALT) IUnit/L 12-78 ALKALINE PHOSPHATASE TOTAL (test IUnit/L 45-117 code = ALKP) CBC W/AUTO [id number] 06:52:00 Test Item Value Reference Range Interpretation Comments WHITE BLOOD CELL (test code = 10.1 K/mm3 4.5-12.5 N WBC) RED BLOOD CELL (test code = 4.44 mill/mm3 3.7-5.2 N RBC) HEMOGLOBIN (test code = HGB) 11.6 gram/dL 11.5-15.5 N HEMATOCRIT (test code = HCT) 35.3 % 36.0-46.0 L MEAN CELL VOLUME (test code = 79.5 fL 80-98 L MCV) MEAN CELL HGB (test code = MCH) 26.1 picogram 27.0-33.0 L MEAN CELL HGB CONCETRATION 32.9 gram/dL 33.0-36.0 L (test code = MCHC) RED CELL DISTRIBUTION WIDTH 13.2 % 11.6-16.2 N (test code = RDW) RED CELL DISTRIBUTION WIDTH SD 37.3 fL 37.0-51.0 N (test code = RDW-SD) PLATELET COUNT (test code = 255 K/mm3 150-450 N PLT) MEAN PLATELET VOLUME (test code 10.3 fL 6.7-11.0 N = MPV) NEUTROPHIL % (test code = NT%) 68.7 % 39.0-69.0 N IMMATURE GRANULOCYTE % (test 0.4 % 0.0-5.0 N code = IG%) LYMPHOCYTE % (test code = LY%) 24.6 % 25.0-55.0 L MONOCYTE % (test code = MO%) 4.7 % 0.0-10.0 N EOSINOPHIL % (test code = EO%) 1.3 % 0.0-5.0 N BASOPHIL % (test code = BA%) 0.3 % 0.0-1.0 N NUCLEATED RBC % (test code = 0.0 % 0-0 N NRBC%) NEUTROPHIL # (test code = NT#) 6.95 K/mm3 1.8-7.7 N IMMATURE GRANULOCYTE # (test 0.04 x10 3/uL 0-0.03 H code = IG#) LYMPHOCYTE # (test code = LY#) 2.48 K/mm3 1.0-5.0 N MONOCYTE # (test code = MO#) 0.47 K/mm3 0-0.8 N EOSINOPHIL # (test code = EO#) 0.13 K/mm3 0.0-0.5 N BASOPHIL # (test code = BA#) 0.03 K/mm3 0.0-0.2 N NUCLEATED RBC # (test code = 0.00 K/mm3 0.0-0.1 N NRBC#) MANUAL DIFF REQUIRED (test code NO = MDIFF) CBC W/AUTO [id number] 06:46:00 Test Item Value Reference Range Interpretation Comments WHITE BLOOD CELL (test code = K/mm3 4.5-12.5 WBC) RED BLOOD CELL (test code = RBC) mill/mm3 3.7-5.2 HEMOGLOBIN (test code = HGB) 11.6 gram/dL 11.5-15.5 N HEMATOCRIT (test code = HCT) % 36.0-46.0 MEAN CELL VOLUME (test code = fL 80-98 MCV) MEAN CELL HGB (test code = MCH) picogram 27.0-33.0 MEAN CELL HGB CONCETRATION (test gram/dL 33.0-36.0 code = MCHC) RED CELL DISTRIBUTION WIDTH % 11.6-16.2 (test code = RDW) RED CELL DISTRIBUTION WIDTH SD fL 37.0-51.0 (test code = RDW-SD) PLATELET COUNT (test code = PLT) K/mm3 150-450 MEAN PLATELET VOLUME (test code fL 6.7-11.0 = MPV) NEUTROPHIL % (test code = NT%) % 39.0-69.0 IMMATURE GRANULOCYTE % (test % 0.0-5.0 code = IG%) LYMPHOCYTE % (test code = LY%) % 25.0-55.0 MONOCYTE % (test code = MO%) % 0.0-10.0 EOSINOPHIL % (test code = EO%) % 0.0-5.0 BASOPHIL % (test code = BA%) % 0.0-1.0 NEUTROPHIL # (test code = NT#) K/mm3 1.8-7.7 LYMPHOCYTE # (test code = LY#) K/mm3 1.0-5.0 MONOCYTE # (test code = MO#) K/mm3 0-0.8 EOSINOPHIL # (test code = EO#) K/mm3 0.0-0.5 BASOPHIL # (test code = BA#) K/mm3 0.0-0.2 LACTIC [id number] 15:18:00 Test Item Value Reference Range Interpretation Comments LACTIC ACID (test code = LACT) 1.1 mmol/L 0.4-1.9 N BASIC METABOLIC [id number] 13:39:00 Test Item Value Reference Range Interpretation Comments SODIUM (test code = 138 mmol/L 136-145 N NA) POTASSIUM (test code 4.0 mmol/L 3.5-5.1 N = K) CHLORIDE (test code = 105.0 mmol/L 98-107 N CL) CARBON DIOXIDE (test 27.0 mmol/L 21-32 N code = CO2) ANION GAP (test code 10.0 10-20 N = GAP) GLUCOSE (test code = 96 mg/dL 74-106 N GLU) BLOOD UREA NITROGEN 9 mg/dL 7-18 N (test code = BUN) GLOMERULAR FILTRATION > 60 mL/min >=60 Estima octavio GFR by RATE (test code = using Ray fied MDRD GFR) formula.Chronic kidney disease is defined as [facility] kidney damageor GFR <60 mL/min/1.73 m2 for >3 months. CREATININE (test code 0.60 mg/dL 0.55-1.02 N Note change in = CREAT) reference range due to change in reagent. BUN/CREATININE RATIO 15.0 10-20 N (test code = BUN/CREA) CALCIUM (test code = 9.4 mg/dL 8.5-10.1 N CA) HEPATIC FUNCTION [id number] 13:39:00 Test Item Value Reference Range Interpretation Comments TOTAL PROTEIN (test 8.2 gram/dL 6.4-8.2 N code = PROT) ALBUMIN (test code = 3.4 g/dL 3.4-5.0 N ALB) GLOBULIN (test code = 4.8 gram/dL 2.7-4.2 H GLOB) ALBUMIN/GLOBULIN RATIO 0.7 0.75-1.50 L (test code = A/G) BILIRUBIN TOTAL (test 0.30 mg/dL 0.0-1.0 N code = BILT) BILIRUBIN DIRECT (test 0.13 mg/dL 0.0-0.20 N code = BILD) SGOT/AST (test code = 9 IUnit/L 15-37 L AST) SGPT/ALT (test code = 16 IUnit/L 12-78 N ALT) ALKALINE PHOSPHATASE 59 IUnit/L 45-117 N Note change in TOTAL (test code = reference range due ALKP) to change in reagent. [id number] 13:39:00 Test Item Value Reference Range Interpretation Comments LIPASE (test code = LIP) 74 U/L 73.0-393.0 N HCG SERUM [id number] 13:39:00 Test Item Value Reference Range Interpretation Comments HCG SERUM BETA 27568.0 mIU/mL 0-3 H Interfering substances (test code = present in the serum of HCG) somepatients ma y cause a false-positiv e result in this assay.Questiona ble elevations in s maria r hCG should be confi rmedwith a urine hCG. Lenz spected Trophoblastic N eoplasms shouldnot be di agnosed based on serun hCG/beta hCG alone. They must be confirmed by cl inical history and tis ankit diagnosis.INTER PRETATIO N:B-HCG LEVELS <5 SHOULD BE CONSI DERED "NEGATIVE." *WH EN BODERLINE RESUL TS ARE ENCOUNTERED,PAT IENT SAMPLESSHOULD B E REDRAWN 48 HOUR S. 0-1 WEEKS AFTER CONCEPTION 5-50 MIU/ ML1-2 WEEKS AFTER CON CEPTION 50- 500 MIU/ML2-3 WEEKS AFTER CONCEPTION 100 -5,000 MIU /ML3-4 WEEKS AFTER CON CEPTION 500- 10,000 MIU/ML4-5 WEEKS AFTER CONCEPTION 1000 -50,000 MIU/ML5-6 WEEKS AFTER CONCEPTION 10,000-100,000 MIU/ML6-8 WEEKS AFTER CONCEPTION 15,000- 200,000 MIU/ML2-3 MONTH S AFTER CONCEPTION 10,000-100,000 MIU/ML BASIC METABOLIC [id number] 13:16:00 Test Item Value Reference Range Interpretation Comments SODIUM (test code = NA) 138 mmol/L 136-145 N POTASSIUM (test code = K) 4.0 mmol/L 3.5-5.1 N CHLORIDE (test code = CL) 105.0 mmol/L 98-107 N CARBON DIOXIDE (test code = CO2) mmol/L 21-32 ANION GAP (test code = GAP) 10-20 GLUCOSE (test code = GLU) mg/dL 74-106 BLOOD UREA NITROGEN (test code = mg/dL 7-18 BUN) GLOMERULAR FILTRATION RATE (test mL/min >=60 code = GFR) CREATININE (test code = CREAT) mg/dL 0.55-1.02 BUN/CREATININE RATIO (test code 10-20 = BUN/CREA) CALCIUM (test code = CA) mg/dL 8.5-10.1 HEPATIC FUNCTION [id number] 13:16:00 Test Item Value Reference Range Interpretation Comments TOTAL PROTEIN (test code = PROT) gram/dL 6.4-8.2 ALBUMIN (test code = ALB) g/dL 3.4-5.0 GLOBULIN (test code = GLOB) gram/dL 2.7-4.2 ALBUMIN/GLOBULIN RATIO (test code = 0.75-1.50 A/G) BILIRUBIN TOTAL (test code = BILT) mg/dL 0.0-1.0 BILIRUBIN DIRECT (test code = BILD) mg/dL 0.0-0.20 SGOT/AST (test code = AST) IUnit/L 15-37 SGPT/ALT (test code = ALT) IUnit/L 12-78 ALKALINE PHOSPHATASE TOTAL (test IUnit/L 45-117 code = ALKP) [id number] 13:16:00 Test Item Value Reference Range Interpretation Comments LIPASE (test code = LIP) U/L 73.0-393.0 HCG SERUM [id number] 13:16:00 Test Item Value Reference Range Interpretation Comments HCG SERUM BETA (test code = HCG) mIU/mL 0-3 URINALYSIS [id number] 13:09:00 Test Item Value Reference Range Interpretation Comments UA COLOR (test code = COLU) Light-Yellow YELLOW UA APPEARANCE (test code = CLEAR CLEAR APPU) UA GLUCOSE DIPSTICK (test NEGATIVE mg/dL NEGATIVE code = DGLUU) UA BILIRUBIN DIPSTICK (test NEGATIVE mg/dL NEGATIVE code = BILU) UA KETONE DIPSTICK (test code NEGATIVE mg/dL NEGATIVE = KETU) UA SPECIFIC GRAVITY (test 1.021 1.001-1.035 code = SGU) UA BLOOD DIPSTICK (test code Negative mg/dL NEGATIVE = LILIAM) UA PH DIPSTICK (test code = 6.5 5.0-8.0 PORFIRIO) UA PROTEIN DIPSTICK (test NEGATIVE mg/dL NEGATIVE code = PROU) UA UROBILINIOGEN DIPSTICK Normal mg/dL NEGATIVE (test code = URO) UA NITRITE DIPSTICK (test NEGATIVE NEGATIVE code = KAY) UA LEUKOCYTE ESTERASE W NEGATIVE Viri/uL NEGATIVE REFLEX (test code = LEUUR) UA WBC (test code = WBCU) 0-5 per HPF 0-5 UA RBC (test code = RBCU) 0-2 #/HPF 0-5 UA EPITHELIAL CELLS (test FEW per HPF FEW code = EPIU) UA BACTERIA (test code = NONE SEEN #/HPF NONE BACU) UA MUCUS (test code = MUCU) FEW #/LPF FEW Urine Source? Clean CatchURINALYSIS [id number] 13:06:00 Test Item Value Reference Range Interpretation Comments UA COLOR (test code = COLU) Light-Yellow YELLOW UA APPEARANCE (test code = CLEAR CLEAR APPU) UA GLUCOSE DIPSTICK (test NEGATIVE mg/dL NEGATIVE code = DGLUU) UA BILIRUBIN DIPSTICK (test NEGATIVE mg/dL NEGATIVE code = BILU) UA KETONE DIPSTICK (test code NEGATIVE mg/dL NEGATIVE = KETU) UA SPECIFIC GRAVITY (test 1.021 1.001-1.035 code = SGU) UA BLOOD DIPSTICK (test code Negative mg/dL NEGATIVE = LILIAM) UA PH DIPSTICK (test code = 6.5 5.0-8.0 PORFIRIO) UA PROTEIN DIPSTICK (test NEGATIVE mg/dL NEGATIVE code = PROU) UA UROBILINIOGEN DIPSTICK Normal mg/dL NEGATIVE (test code = URO) UA NITRITE DIPSTICK (test NEGATIVE NEGATIVE code = KAY) UA LEUKOCYTE ESTERASE W NEGATIVE Viri/uL NEGATIVE REFLEX (test code = LEUUR) UA WBC (test code = WBCU) per HPF 0-5 UA RBC (test code = RBCU) per HPF 0-5 UA EPITHELIAL CELLS (test per HPF Few code = EPIU) UA BACTERIA (test code = per HPF NONE BACU) Urine Source? Clean CatchCBC W/O [id number] 13:05:00 Test Item Value Reference Range Interpretation Comments WHITE BLOOD CELL (test code = 13.6 K/mm3 4.5-12.5 H WBC) RED BLOOD CELL (test code = 5.23 mill/mm3 3.7-5.2 H RBC) HEMOGLOBIN (test code = HGB) 13.5 gram/dL 11.5-15.5 N HEMATOCRIT (test code = HCT) 41.0 % 36.0-46.0 N MEAN CELL VOLUME (test code = 78.4 fL 80-98 L MCV) MEAN CELL HGB (test code = MCH) 25.8 picogram 27.0-33.0 L MEAN CELL HGB CONCETRATION 32.9 gram/dL 33.0-36.0 L (test code = MCHC) RED CELL DISTRIBUTION WIDTH 13.1 % 11.6-16.2 N (test code = RDW) PLATELET COUNT (test code = 300 K/mm3 150-450 N PLT) MEAN PLATELET VOLUME (test code 9.9 fL 6.7-11.0 N = MPV) CBC W/O [id number] 13:03:00 Test Item Value Reference Range Interpretation Comments WHITE BLOOD CELL (test code = K/mm3 4.5-12.5 WBC) RED BLOOD CELL (test code = RBC) mill/mm3 3.7-5.2 HEMOGLOBIN (test code = HGB) 13.5 gram/dL 11.5-15.5 N HEMATOCRIT (test code = HCT) 41.0 % 36.0-46.0 N MEAN CELL VOLUME (test code = fL 80-98 MCV) MEAN CELL HGB (test code = MCH) picogram 27.0-33.0 MEAN CELL HGB CONCETRATION (test gram/dL 33.0-36.0 code = MCHC) RED CELL DISTRIBUTION WIDTH % 11.6-16.2 (test code = RDW) PLATELET COUNT (test code = PLT) K/mm3 150-450 MEAN PLATELET VOLUME (test code fL 6.7-11.0 = MPV) - US ABDOMEN [id number] 12:31:00 Name: VALERIANO FAULKNER [facility] : 1995 Age/S: 23 / F [address] Unit #: [id number] Loc: [place] [address] Phys: Kaushik Bowen NP Acct: [id number] Dis Date: Status: DIS IN PHONE #: [phone] Exam Date: 04/08/2019 1206 FAX #: [phone] Reason: Abdominal Pain EXAMS: CPT CODE: [id number] US ABDOMEN LTD 49050 HISTORY: Abdominal pain. COMPARISON: None available. Location: TH. Theliver is mildly hyperechogenic suggesting mild fibrofatty infiltration which slightly limited evaluation for hepatic mass however hemangioma is noted within the right lobe measuring 1 cm. T he liver is measuring 15.9 cm in length. No intra or extrahepatic biliary ductaldilatation. CBD is normal at 4.6 mm Main portal vein is patent with hepatopedal flow and normal spectral waveform. Well-distended gallbladder with stone within the neck of the gallbladder. No pericholecystic fluid. No wall thickening. No ascites. Right kidney is free from hydronephrosis and calyceal stones. Normal echogenicity and texture. Right kidney measured 11.5 cm in length. Visualized portions of the IVC, aorta and pancreasare normal however imaged incompletely. IMPRESSION: Gallstone within the neck of the gallbladder without pericholecystic fluid or wall thickening. Fibrofatty infiltrated liver with 1 cm hemangioma within the right lobe. Unremarkable right kidney. at 1231 Reported and signed by: Christopher Rand M.D. CC: Prakash Conn MD; Kaushik Bowen NP Technologist: HARSHIL HECTOR Trnnhb Date/Time: 04/08/2019 (1231) [email or web address] Orig Print D/T: S: 04/08/2019 (1234) Probe: PAGE 1 Signed Report- US ABDOMEN [id number] 12:31:00 Name: NADIR FAULKNER [facility] : 1995 Age/S: 23 / F [address] Unit #: [id number] Loc: [place] [address] Phys: Kaushik Bowen [employer] Acct: [id number] Dis Date: Status: PRE ER PHONE #: [phone] Exam Date: 04/08/2019 1206 FAX #: [phone] Reason: Abdominal Pain EXAMS: CPTCODE: [id number] ABDOMEN [facility] [address] HISTORY: Abdominal pain. COMPARISON: None available. Location: TH. Theliver is mildly hyperechogenic suggesting mild fibrofatty infiltration which slightly limited evaluation for hepatic mass however hemangioma is noted within the right lobe measuring 1 cm. The liver is measuring 15.9 cm in length. No intra or extrahepatic biliary ductaldilatation. CBD is normal at 4.6 mm Main portal vein is patent with hepatopedal flow and normal spectral waveform. Well-distended gallbladder with stone within the neck of the gallbladder. No pericholecystic fluid. No wall thickening. No ascites.Right kidney is free from hydronephrosis and calyceal stones. Normal echogenicity and texture. Right kidney measured 11.5 cm in length. Visualized portions of the IVC, aorta and pancreasare normal however imaged incompletely. IMPRESSION: Gallstone within the neck of the gallbladder without pericholecystic fluid or wall thickening. Fibrofatty infiltrated liver with 1 cm hemangioma within the right lobe. Unremarkable right kidney. at 1231 Reported and signed by: Christopher Rand M.D. CC: Prakash Conn MD; Kaushik Bowen NP Technologist: HARSHIL HECTOR Trnnhb Date/Time: 04/08/2019 (1231) [email or web address] Orig Print D/T: S: 04/08/2019 (1234) Probe: PAGE 1 Signed Report- DUP AB/PEL/SC [id number] 12:28:00 Name: VALERIANO FAULKNER [facility] : 1995 Age/S: 23 / F [address] Unit #: [id number] Loc: [place] [address] Phys: Kaushik Bowen [employer] Acct: [id number] Dis Date: Status: DIS IN PHONE #: [phone] Exam Date: 04/08/2019 1211 FAX #: [phone] Reason: PELVIC PAIN EXAMS: CPTCODE: [id number] DUP AB/PEL/SC COMP 40998 HISTORY: Vag inal bleeding and pelvic pain. COMPARISON: None available. Transabdominal pelvic pelvic ultrasound with color Doppler flow and grayscale imaging. Anteverted uterus measured 10 x 6.7 x 7.3 cm. Intrauterine gestational sac with pole. Cardiac activity documented at 167 beats per minutes. No subchorionic hemorrhage is noted. Elon-rump length of 3.7 cm would equal 10 weeks 4 days +/- week. MARIFER of October 31, 2019. MARIFER by outside ultrasound of October 28, 2019. Color and Doppler flow with normal spectral waveform. Right ovary measured 2.4 x 1.7 x 2.2 cm. Left ovary measured 3x 2.1 x 2.8 cm. IMPRESSION: IUP at 10 weeks 4 days +/- week with average heart rate of 167 beats per minutes. No subchorionic hemorrhage. MARIFER of October 31, 2019. Color Doppler flow in either ovary. at 1228 Reported and signed by: Christopher Rand M.D. CC: Prakash Conn MD; Kaushik Bowen NP Technologist: HARSHIL HECTOR Trnnhb Date/Time: 04/08/2019 (1228) [email or web address] Orig Print D/T:S: 04/08/2019 (1231) Probe: PAGE 1 Signed Report- US PREG 1ST [id number] 12:28:00 Name: VALERIANO FAULKNER [facility] : 1995 Age/S: 23 / F [address] Unit #: [id number] Loc: [place] [address] Phys: Kaushik Bowen NP Acct: [id number] Dis Date: Status: DIS IN PHONE #: [phone] Exam Date: 04/08/2019 1211 FAX #: [phone] Reason: VAGINALBLEEDING/PELVIC PAIN EXAMS: CPT CODE: [id number] US PREG 1ST TRIMTR 62278 HISTORY: Vaginal bleeding and pelvic pain. COMPARISON: None available. Transabdominal pelvic pelvic ultrasound with color Doppler flow and grayscale imaging. Anteverted uterus measured 10 x 6.7 x 7.3 cm. Intrauterine gestational sac with pole. Cardiac activity documented at 167 beats per minutes. No subchorionic hemorrhage is noted. Elon-rump length of 3.7 cm would equal 10 weeks 4 days +/- week. MARIFER of October 31, 2019. MARIFER by outside ultrasound of October 28, 2019. Color and Doppler flow with normal spectral waveform. Right ovary measured 2.4 x 1.7 x 2.2 cm. Left ovary measured 3x 2.1 x 2.8 cm. IMPRESSION: IUP at 10 weeks 4 days +/- week with average heart rate of 167 beats per minutes. No subchorionic hemorrhage. MARIFER of October 31, 2019. Color Doppler flow in either ovary. at 1228 Reported and signed by: Christopher Rand M.D. CC: Prakash Conn MD; Kaushik Bowen NP Technologist: HARSHIL HECTOR Trnscb Date/Time: 04/08/2019 (1228) [email or web address] Orig Print D/T:S: 04/08/2019 (1231) Probe: PAGE 1 Signed Report- DUP AB/PEL/SC [id number] 12:28:00 Name: NADIR FAULKNER [facility] : 1995 Age/S: 23 / F [address] [facility] Unit #: [id number] Loc: [place], [place] [address] Phys: Kaushik Bowen NP Acct: [id number] Dis Date: Status: PRE ER PHONE #: [phone] Exam Date: 04/08/2019 1211 FAX #: [phone] Reason: PELVIC PAIN EXAMS: CPTCODE: [id number] DUP AB/PEL/SC COMP 42316 HISTORY: Vag inal bleeding and pelvic pain. COMPARISON: None available. Transabdominal pelvic pelvic ultrasound with color Doppler flow and grayscale imaging. Anteverted uterus measured 10 x 6.7 x 7.3 cm. Intrauterine gestational sac with pole. Cardiac activity documented at 167 beats per minutes. No subchorionic hemorrhage is noted. Elon-rump length of 3.7 cm would equal 10 weeks 4 days +/- week. MARIFER of October 31, 2019. MARIFER by outside ultrasound of October 28, 2019. Color and Doppler flow with normal spectral waveform. Right ovary measured 2.4 x 1.7 x 2.2 cm. Left ovary measured 3x 2.1 x 2.8 cm. IMPRESSION: IUP at 10 weeks 4 days +/- week with average heart rate of 167 beats per minutes. No subchorionic hemorrhage. MARIFER of October 31, 2019. Color Doppler flow in either ovary. at 1228 Reported and signed by: Christopher Rand M.D. CC: Prakash Conn MD; Kaushik Bowen NP Technologist: HARSHIL HECTOR Trnscb Date/Time: 04/08/2019 (1228) [email or web address] Orig Print D/T:S: 04/08/2019 (1049) Probe: PAGE 1 Signed Report- US PREG 1ST [id number] 12:28:00 Name: NADIR FAULKNER [facility] : 1995 Age/S: 23 / F [address] [facility] Unit #: [id number] Loc: [place] [address] Phys: Kaushik Bowen NP Acct: [id number] Dis Date: Status: PRE ER PHONE #: [phone] Exam Date: 04/08/2019 1211 FAX #: [phone] Reason: VAGINALBLEEDING/PELVIC PAIN EXAMS: CPT CODE: [id number] US PREG 1ST TRIMTR 48691 HISTORY: Vaginal bleeding and pelvic pain. COMPARISON: None available. Transabdominal pelvic pelvic ultrasound with color Doppler flow and grayscale imaging. Anteverted uterus measured 10 x 6.7 x 7.3 cm. Intrauterine gestational sac with pole. Cardiac activity documented at 167 beats per minutes. No subchorionic hemorrhage is noted. Elon-rump length of 3.7 cm would equal 10 weeks 4 days +/- week. MARIFER of October 31, 2019. MARIFER by outside ultrasound of October 28, 2019. Color and Doppler flow with normal spectral waveform. Right ovary measured 2.4 x 1.7 x 2.2 cm. Left ovary measured 3x 2.1 x 2.8 cm. IMPRESSION: IUP at 10 weeks 4 days +/- week with average heart rate of 167 beats per minutes. No subchorionic hemorrhage. MARIFER of October 31, 2019. Color Doppler flow in either ovary. at 1228 Reported and signed by: Christopher Rand M.D. CC: Prakash Conn MD; Kaushik Bowen NP Technologist: HARSHIL HECTOR Trnscb Date/Time: 04/08/2019 (4006) [email or web address] Orig Print D/T:S: 04/08/2019 (2804) Probe: PAGE 1 Signed ReportLACTIC [id number] 17:22:00 Test Item Value Reference Range Interpretation Comments LACTIC ACID (test code = LACT) 1.1 mmol/L 0.4-1.9 N BASIC METABOLIC [id number] 17:19:00 Test Item Value Reference Range Interpretation Comments SODIUM (test code = NA) 138 mEq/L 134-147 N POTASSIUM (test code = 4.1 mEq/L 3.4-5.0 N K) CHLORIDE (test code = 105 mEq/L 100-108 N CL) CARBON DIOXIDE (test 27 mEq/L 21-33 N code = CO2) ANION GAP (test code = 10 0-20 N GAP) GLUCOSE (test code = 108 mg/dL 70-110 N GLU) BLOOD UREA NITROGEN 10 mg/dL 7-18 N (test code = BUN) GLOMERULAR FILTRATION 104.6 110-120 L Units of measure = RATE (test code = GFR) ml/mi n/1.73 m2 CREATININE (test code = 0.7 mg/dL 0.6-1.3 N CREAT) CALCIUM (test code = 8.9 mg/dL 8.0-10.5 N CA) BASIC METABOLIC [id number] 17:17:00 Test Item Value Reference Range Interpretation Comments SODIUM (test code = NA) 138 mEq/L 134-147 N POTASSIUM (test code = K) 4.1 mEq/L 3.4-5.0 N CHLORIDE (test code = CL) 105 mEq/L 100-108 N CARBON DIOXIDE (test code = CO2) 27 mEq/L 21-33 N ANION GAP (test code = GAP) 10 0-20 N GLUCOSE (test code = GLU) 108 mg/dL 70-110 N BLOOD UREA NITROGEN (test code = 10 mg/dL 7-18 N BUN) GLOMERULAR FILTRATION RATE (test 110-120 code = GFR) CREATININE (test code = CREAT) mg/dL 0.6-1.3 CALCIUM (test code = CA) 8.9 mg/dL 8.0-10.5 N CBC W/AUTO [id number] 17:05:00 Test Item Value Reference Range Interpretation Comments WHITE BLOOD CELL (test code = 7.02 x10 3/uL 4.5-11.0 N WBC) RED BLOOD CELL (test code = 5.04 x10 6/uL 3.54-5.02 H RBC) HEMOGLOBIN (test code = HGB) 13.3 g/dL 11.0-15.0 N HEMATOCRIT (test code = HCT) 41.4 % 33.0-45.0 N MEAN CELL VOLUME (test code = 82.1 fL 81.0-99.0 N MCV) MEAN CELL HGB (test code = MCH) 26.4 pg 27.0-33.0 L MEAN CELL HGB CONCETRATION 32.1 g/dL 33.0-37.0 L (test code = MCHC) RED CELL DISTRIBUTION WIDTH CV 12.8 % 11.5-14.5 N (test code = RDW) RED CELL DISTRIBUTION WIDTH SD 38.2 fL 37.0-54.0 N (test code = RDW-SD) PLATELET COUNT (test code = 318 x10 3/uL 150-400 N PLT) MEAN PLATELET VOLUME (test code 10.2 fL 7.0-9.0 H = MPV) NEUTROPHIL % (test code = NT%) 66.7 % 56.0-77.0 N IMMATURE GRANULOCYTE % (test 0.4 % 0.0-2.0 N code = IG%) LYMPHOCYTE % (test code = LY%) 22.9 % 14.0-32.0 N MONOCYTE % (test code = MO%) 8.3 % 4.8-9.0 N EOSINOPHIL % (test code = EO%) 1.4 % 0.3-3.7 N BASOPHIL % (test code = BA%) 0.3 % 0.0-2.0 N NUCLEATED RBC % (test code = 0.0 % 0-0 N NRBC%) NEUTROPHIL # (test code = NT#) 4.68 x10 3/uL 2.0-7.6 N IMMATURE GRANULOCYTE # (test 0.03 x10 3/uL 0.00-0.03 N code = IG#) LYMPHOCYTE # (test code = LY#) 1.61 x10 3/uL 1.0-3.8 N MONOCYTE # (test code = MO#) 0.58 x10 3/uL 0.1-0.8 N EOSINOPHIL # (test code = EO#) 0.10 x10 3/uL 0.0-0.2 N BASOPHIL # (test code = BA#) 0.02 x10 3/uL 0.0-0.2 N NUCLEATED RBC # (test code = 0.00 x10 3/uL 0.0-0.1 N NRBC#) MANUAL DIFF REQUIRED (test code NO = MDIFF) - XR CHEST 2 [id number] 16:56:00 FAX: Nieves Delaney NP [phone] [place]: St: PRE FAX: Jose Rodriguez MD [phone] Name: VALERIANO FAULKNER [facility] : 1995 Age/S: 23/F [address] [place] [address] Unit #: [id number] Loc: [place] [address] Phys: Nieves Delaney NP Acct: [id number] Dis Date: Status: PRE ER PHONE #: [phone] Exam Date: 03/23/20191651 FAX #: [phone] Reason: cough EXAMS: CPT CODE: [id number] XR CHEST 2 V 12285 Clinical Jneny cation: cough Comparison: 06/22/2018 FINDINGS: The frontal and lateral chest radiographs show normal lung volumes. No interstitial or airspace opacities are seen. No pleural effusions are present. No pneumothorax is seen. The heart is normalin size. The trachea is midline. There are no clinically significant osseous abnormalities noted. IMPRESSION: No chest radiographic evidence of acute cardiopulmonary disease. SL: VITALIY Electronically Signed by Irineo Trujillo on03/23/2019 at 8546 Reported and signed by: Kirby Trujillo M.D. CC: Nieves Delaney NP; Jose Austin MD Technologist: RT Michi(Royal) Trnscrd Date/Time/By: 03/23/2019 (1655) : By: JenniferLNV Orig Print D/T: S: 03/23/2019 (7414) PAGE 1 Signed ReportCBC W/O [id number] 02:51:00 Test Item Value Reference Range Interpretation Comments WHITE BLOOD CELL (test code = 12.9 K/mm3 4.5-12.5 H WBC) RED BLOOD CELL (test code = 4.80 mill/mm3 3.7-5.2 N RBC) HEMOGLOBIN (test code = HGB) 12.7 gram/dL 11.5-15.5 N HEMATOCRIT (test code = HCT) 39.5 % 36.0-46.0 N MEAN CELL VOLUME (test code = 82.3 fL 80-98 N MCV) MEAN CELL HGB (test code = MCH) 26.5 picogram 27.0-33.0 L MEAN CELL HGB CONCETRATION 32.2 gram/dL 33.0-36.0 L (test code = MCHC) RED CELL DISTRIBUTION WIDTH 13.2 % 11.6-16.2 N (test code = RDW) PLATELET COUNT (test code = 287 K/mm3 150-450 N PLT) MEAN PLATELET VOLUME (test code 10.0 fL 6.7-11.0 N = MPV) UR HCG [id number] 02:42:00 Test Item Value Reference Range Interpretation Comments UR HCG QUAL (test POSITIVE This HCGQL test is NOT code = HCGQLU) applicable fo r MALE patients.Check with nurse about probable order error.If Tumor Marker Test needed, nu rse should order test "HCG TU"(Test #550.32845)---- - URINALYSIS [id number] 02:38:00 Test Item Value Reference Range Interpretation Comments UA COLOR (test code = YELLOW YELLOW COLU) UA APPEARANCE (test code Cloudy CLEAR A = APPU) UA GLUCOSE DIPSTICK (test NEGATIVE mg/dL NEGATIVE code = DGLUU) UA BILIRUBIN DIPSTICK NEGATIVE mg/dL NEGATIVE (test code = BILU) UA KETONE DIPSTICK (test 10 (1+) mg/dL NEGATIVE A code = KETU) UA SPECIFIC GRAVITY (test 1.032 1.001-1.035 code = SGU) UA BLOOD DIPSTICK (test Negative mg/dL NEGATIVE code = LILIAM) UA PH DIPSTICK (test code 5.5 5.0-8.0 = PORFIRIO) UA PROTEIN DIPSTICK (test NEGATIVE mg/dL NEGATIVE code = PROU) UA UROBILINIOGEN DIPSTICK Normal mg/dL NEGATIVE (test code = URO) UA NITRITE DIPSTICK (test NEGATIVE NEGATIVE code = KAY) UA LEUKOCYTE ESTERASE W 75 Viri/uL (1+) NEGATIVE A REFLEX (test code = Viri/uL LEUUR) UA WBC (test code = WBCU) 6-10 per HPF 0-5 A UA RBC (test code = RBCU) 0-2 #/HPF 0-5 UA EPITHELIAL CELLS (test MANY per HPF FEW code = EPIU) UA BACTERIA (test code = MODERATE #/HPF NONE A BACU) UA MUCUS (test code = FEW #/LPF FEW MUCU) Urine Source? Clean CatchBASIC METABOLIC [id number] 02:02:00 Test Item Value Reference Range Interpretation Comments SODIUM (test code = 140 mmol/L 136-145 N NA) POTASSIUM (test code 3.9 mmol/L 3.5-5.1 N = K) CHLORIDE (test code = 106.0 mmol/L 98-107 N CL) CARBON DIOXIDE (test 26.0 mmol/L 21-32 N code = CO2) ANION GAP (test code 11.9 10-20 N = GAP) GLUCOSE (test code = 95 mg/dL 74-106 N GLU) BLOOD UREA NITROGEN 14 mg/dL 7-18 N (test code = BUN) GLOMERULAR FILTRATION > 60 mL/min >=60 Estima octavio GFR by RATE (test code = using Ray fied MDRD GFR) formula.Chronic kidney disease is defined as eith er kidney damageor GFR <60 mL/min/1.73 m2 for >3 months. CREATININE (test code 0.70 mg/dL 0.55-1.02 N Note change in = CREAT) reference range due to change in reagent. BUN/CREATININE RATIO 20.0 10-20 N (test code = BUN/CREA) CALCIUM (test code = 8.6 mg/dL 8.5-10.1 N CA) HCG SERUM [id number] 02:02:00 Test Item Value Reference Range Interpretation Comments HCG SERUM BETA 686.0 mIU/mL 0-3 H Interfering s ubstances (test code = HCG) present in the serum of somepatients ma y cause a false-positive result in this assay.Ques tionable elevations in s maria r hCG should be confi rmedwith a urine hCG. Lenz spected Trophoblastic N eoplasms shouldnot be di agnosed based on serun hCG/beta hCG alone. They must be confirmed by cl inical history and tis ankit diagnosis.INTER PRETATION :B-HCG LEVELS < 5 SHOULD BE CONSIDERED A S "NEGATIVE." *WH EN BODERLINE RESUL TS ARE ENCOUNTERED,PAT IENT SAMPLESSHOULD B E REDRAWN 48 HOURS. 0-1 WEEKS AFTER CONCEPTIO N 5-50 MIU/ML1-2 WEEKS AFTER CONCEPTION 50-500 MIU/ ML2-3 WEEKS AFTER CON CEPTION 100 - 5,000 MIU/ML3-4 WEEKS AFTER CONCEPTION 500-10,000 MIU /ML4-5 WEEKS AFTER CON CEPTION 1000 -50 ,000 MIU/ML5-6 WEEKS AFTER CONCEPTION 10,000-100,000 MIU/ML6-8 WEEKS AFTER CONCEPTION 15,000- 200,000 MIU/ML2-3 MONTH S AFTER CONCEPTION 10,000-100,000 MIU/ML BASIC METABOLIC [id number] 01:52:00 Test Item Value Reference Range Interpretation Comments SODIUM (test code = NA) 140 mmol/L 136-145 N POTASSIUM (test code = K) 3.9 mmol/L 3.5-5.1 N CHLORIDE (test code = CL) 106.0 mmol/L 98-107 N CARBON DIOXIDE (test code = CO2) mmol/L 21-32 ANION GAP (test code = GAP) 10-20 GLUCOSE (test code = GLU) mg/dL 74-106 BLOOD UREA NITROGEN (test code = mg/dL 7-18 BUN) GLOMERULAR FILTRATION RATE (test mL/min >=60 code = GFR) CREATININE (test code = CREAT) mg/dL 0.55-1.02 BUN/CREATININE RATIO (test code 10-20 = BUN/CREA) CALCIUM (test code = CA) mg/dL 8.5-10.1 HCG SERUM [id number] 01:52:00 Test Item Value Reference Range Interpretation Comments HCG SERUM BETA (test code = HCG) mIU/mL 0-3 - DUP AB/PEL/SC [id number] 01:38:00 Name: VALERIANO FAULKNER [facility] : 1995 Age/S: 23 / F [address] [facility] Unit #: [id number] Loc: [place] [address] Phys: Livia Ortega [employer] Acct: [id number] Dis Date: Status: REG ER PHONE #: [phone] Exam Date: 02/25/2019 0115 FAX #: [phone] Reason: PELVIC PAIN EXAMS: CPT CODE: [id number] DUP AB/PEL/SC COMP 89437 HISTORY: Pelvic pain Location: C3 FINDINGS: Transabdominal and transvaginal pelvic ultrasound images are provided. Doppler interrogation of pelvic structures was performed with color flow, grayscale, and spectral analysis. Uterus measures 8.4 x 4.7 cm. Endometrium is thickened with endometrial stripe measures up to 1.9 cm. No intrauterine demonstrated. Tiny cystic area seen in the lower uterus nonspecific in nature. Both ovaries demonstrated with ovarian flow noted bilaterally. Multiple follicles are present bilaterally. Small mildly complex cyst is seen involving the right ovary measuring 1.4 x 1.2 cm. Small amount of free fluid is present in the pelvis. IMPRESSION: 1. No intrauterine demonstrated. 2. Ovarian flow noted bilaterally. 3. Smallamount of free fluid in the pelvis. at 0138 Reported and signed by: Ean Bello MD CC: Verónica Beltran MD; Jose Austin MD; Livia Ortega NP Technologist: Yamile Tobar RDMS Trnscb Date/Time: 02/25/2019 (013) [email or web address] Orig Print D/T: S: 02/25/2019 (014) Probe: PAGE 1 Signed Report- US PREG UT [id number] 01:38:00 Name: VALERIANO FAULKNER [facility] : 1995 Age/S: 23 / F [address] [facility] Unit #: [id number] Loc: [place] [address] Phys: Livia Ortega NP Acct: [id number] Dis Date: Status: REG ER PHONE #: [phone] Exam Date: 02/25/2019 0115 FAX #: [phone] Reason: PELVIC PAIN EXAMS: CPT CODE: [id number] US PREG UT TRANSVAGINAL 94494 HISTORY: Pelvic pain Location: C3 FINDINGS: Transabdominal and transvaginal pelvic ultrasound images are provided. Doppler interrogation of pelvic structures was performed with color flow, grayscale, and spectral analysis. Uterus measures 8.4 x 4.7 cm. Endometrium is thickened with endometrial stripe measures up to 1.9 cm. No intrauterine demonstrated. Tiny cystic area seen in the lower uterus nonspecific in nature. Both ovaries demonstrated with ovarian flow noted bilaterally. Multiple follicles are present bilaterally. Small mildly complex cyst is seen involving the right ovary measuring 1.4 x 1.2 cm. Small amount of free fluid is present in the pelvis. IMPRESSION: 1. No intrauterine demonstrated. 2. Ovarian flow noted bilaterally. 3. Smallamount of free fluid in the pelvis. at 0138 Reported and signed by: Ean Bello MD CC: Verónica Beltran MD; Jose Austin MD; Livia Ortega NP Technologist: Yamile Tobar RDMS Trnscb Date/Time: 02/25/2019 (013) [email or web address] Orig Print D/T: S: 02/25/2019 (0141) Probe: [id number] PAGE 1 Signed Report- US PREG 1ST [id number] 01:38:00 Name: VALERIANO FAULKNER [facility] : 1995 Age/S: 23 / F [address] [facility] Unit #: [id number] [place]: [place] [address] Phys: Livia Ortega NP Acct: [id number] Dis Date: Status: REG ER PHONE #: [phone] Exam Date: 02/25/2019 0115 FAX #: [phone] Reason: VAGINALBLEEDING/PELVIC PAIN EXAMS: CPT CODE: [id number] US PREG 1ST TRIMTR 64679 HISTORY: Pelvic pain Location: C3 FINDINGS: Transabdominal and transvaginal pelvic ultrasound images are provided. Doppler interrogation of pelvic structures was performed with color flow, grayscale, and spectral analysis. Uterus measures 8.4 x 4.7 cm. Endometrium is thickened with endometrial stripe measures up to 1.9 cm. No intrauterine demonstrated. Tiny cystic area seen in the lower uterus nonspecific in nature. Both ovaries demonstrated with ovarian flow noted bilaterally. Multiple follicles are present bilaterally. Small mildly complex cyst is seen involving the right ovary measuring 1.4 x 1.2 cm. Small amount of free fluid is present in the pelvis. IMPRESSION: 1. No intrauterine demonstrated. 2. Ovarian flow noted bilaterally. 3. Smallamount of free fluid in the pelvis. at 0138 Reported and signed by: Ean Bello MD CC: Verónica Beltran MD; Jose Austin MD; Livia Ortega NP Technologist: Yamile Tobar RDMS Trnscb Date/Time: 02/25/2019 (013) [email or web address] Orig Print D/T: S: 02/25/2019 (014) Probe: PAGE 1 Signed Report- US ABDOMEN [id number] 14:25:00 Name: VALERIANO FAULKNER [facility] : 1995 Age/S: 23 / F [address] Unit #: [id number] Loc: [place] [address] Phys: Sunita Ybarra NP Acct: [id number] Dis Date: Status: REG ER PHONE #: [phone] Exam Date: 10/06/2018 1403 FAX #: [phone] Reason: Abdominal Pain EXAMS: CPTCODE: [id number] US ABDOMEN LTD 82098 HISTORY: Abdominal pain. COMPARISON: CT scan from June 22, 2018. The liver is mildly hyperechogenic suggesting mild fibrofatty infiltration which slightly limited evaluation for hepatic mass however no discrete lesions. The liver measured 15.9 cm in length. No intra or extrahepatic biliary ductal dilatation. CBD is normal at 3 mm. Main portal vein is patent with hepatopedal flow and normal spectral waveform. Contracted gallbladder with mobile gallstone. No pericholecystic fluid. Mild wall thickening at 3.9 mm. Correlate for cholecystitis. No ascites. Right kidney is free from hydronephrosis and calyceal stones. Normal echogenicity and texture. Right kidney measuring 11.2 cm in length. Visualized portions of the IVC, aorta and pancreas are normal however imaged incompletely. IMPRESSION: Single mobile gallstone with thickened wall without pericholecystic fluid. Correlate for cholecystitis. at 1421 Reported and signed by: Christopher Rand M.D. CC: Sunita Ybarra [employer]; Jose Austin MD Technologist: Eliza Mittal RDMS Trnscb Date/Time: 10/06/2018 (6757) [email or web address] Orig Print D/T: S: 10/06/2018 (1876) Probe: PAGE 1 Signed ReportHCG SERUM [id number] 12:46:00 Test Item Value Reference Range Interpretation Comments HCG SERUM BETA < 1.0 mIU/mL 0-3 N INTERPRETATIO N:B-HCG (test code = HCG) LEVELS <5 SHOULD BE CONSIDERED "NEGATIVE." *WH EN BODERLINE RESUL TS ARE ENCOUNTERED,PAT IENT SAMPLESSHOULD B E REDRAWN 48 HOURS. 0-1 WEEKS AFTER CONCEPTIO N 5-50 MIU/ML1-2 WEEKS AFTER CONCEPTION 50-500 MIU/ ML2-3 WEEKS AFTER CON CEPTION 100 - 5,000 MIU/ML3-4 WEEKS AFTER CONCEPTION 500-10,000 MIU /ML4-5 WEEKS AFTER CON CEPTION 1000 -50 ,000 MIU/ML5-6 WEEKS AFTER CONCEPTION 10,000-100,000 MIU/ML6-8 WEEKS AFTER CONCEPTION 15,000- 200,000 MIU/ML2-3 MONTH S AFTER CONCEPTION 10,000-100,000 MIU/ML URINALYSIS [id number] 12:43:00 Test Item Value Reference Range Interpretation Comments UA COLOR (test code = YELLOW YELLOW COLU) UA APPEARANCE (test code Cloudy CLEAR A = APPU) UA GLUCOSE DIPSTICK (test NEGATIVE mg/dL NEGATIVE code = DGLUU) UA BILIRUBIN DIPSTICK NEGATIVE mg/dL NEGATIVE (test code = BILU) UA KETONE DIPSTICK (test NEGATIVE mg/dL NEGATIVE code = KETU) UA SPECIFIC GRAVITY (test 1.020 1.001-1.035 code = SGU) UA BLOOD DIPSTICK (test Negative mg/dL NEGATIVE code = LILIAM) UA PH DIPSTICK (test code 6.5 5.0-8.0 = PORFIRIO) UA PROTEIN DIPSTICK (test NEGATIVE mg/dL NEGATIVE code = PROU) UA UROBILINIOGEN DIPSTICK Normal mg/dL NEGATIVE (test code = URO) UA NITRITE DIPSTICK (test NEGATIVE NEGATIVE code = KAY) UA LEUKOCYTE ESTERASE W 25 Viri/uL (Trace) NEGATIVE A REFLEX (test code = Viri/uL LEUUR) UA WBC (test code = WBCU) 11-20 per HPF 0-5 A UA RBC (test code = RBCU) 0-2 #/HPF 0-5 UA EPITHELIAL CELLS (test MANY per HPF FEW code = EPIU) UA BACTERIA (test code = FEW #/HPF NONE A BACU) UA MUCUS (test code = FEW #/LPF FEW MUCU) Urine Source? Clean CatchBASIC METABOLIC [id number] 12:39:00 Test Item Value Reference Range Interpretation Comments SODIUM (test code = 141 mmol/L 136-145 N NA) POTASSIUM (test code 4.1 mmol/L 3.5-5.1 N = K) CHLORIDE (test code = 107.0 mmol/L 98-107 N CL) CARBON DIOXIDE (test 26.0 mmol/L 21-32 N code = CO2) ANION GAP (test code 12.1 10-20 N = GAP) GLUCOSE (test code = 134 mg/dL 74-106 H GLU) BLOOD UREA NITROGEN 11 mg/dL 7-18 N (test code = BUN) GLOMERULAR FILTRATION > 60 mL/min >=60 Estima octavio GFR by RATE (test code = using Ray fied MDRD GFR) formula.Chronic kidney disease is defined as eith er kidney damageor GFR <60 mL/min/1.73 m2 for >3 months. CREATININE (test code 0.70 mg/dL 0.55-1.02 N Note change in = CREAT) reference range due to change in reagent. BUN/CREATININE RATIO 14.8 10-20 N (test code = BUN/CREA) CALCIUM (test code = 8.8 mg/dL 8.5-10.1 N CA) HEPATIC FUNCTION [id number] 12:39:00 Test Item Value Reference Range Interpretation Comments TOTAL PROTEIN (test 7.3 gram/dL 6.4-8.2 N code = PROT) ALBUMIN (test code = 3.2 g/dL 3.4-5.0 L ALB) GLOBULIN (test code = 4.1 gram/dL 2.7-4.2 N GLOB) ALBUMIN/GLOBULIN RATIO 0.8 0.75-1.50 N (test code = A/G) BILIRUBIN TOTAL (test 0.30 mg/dL 0.0-1.0 N code = BILT) BILIRUBIN DIRECT (test 0.07 mg/dL 0.0-0.20 N code = BILD) SGOT/AST (test code = 9 IUnit/L 15-37 L AST) SGPT/ALT (test code = 15 IUnit/L 12-78 N ALT) ALKALINE PHOSPHATASE 68 IUnit/L 45-117 N Note change in TOTAL (test code = reference range due ALKP) to change in reagent. [id number] 12:39:00 Test Item Value Reference Range Interpretation Comments LIPASE (test code = LIP) 97 U/L 73.0-393.0 N BASIC METABOLIC [id number] 12:32:00 Test Item Value Reference Range Interpretation Comments SODIUM (test code = NA) 141 mmol/L 136-145 N POTASSIUM (test code = K) 4.1 mmol/L 3.5-5.1 N CHLORIDE (test code = CL) 107.0 mmol/L 98-107 N CARBON DIOXIDE (test code = CO2) mmol/L 21-32 ANION GAP (test code = GAP) 10-20 GLUCOSE (test code = GLU) mg/dL 74-106 BLOOD UREA NITROGEN (test code = mg/dL 7-18 BUN) GLOMERULAR FILTRATION RATE (test mL/min >=60 code = GFR) CREATININE (test code = CREAT) mg/dL 0.55-1.02 BUN/CREATININE RATIO (test code 10-20 = BUN/CREA) CALCIUM (test code = CA) mg/dL 8.5-10.1 HEPATIC FUNCTION [id number] 12:32:00 Test Item Value Reference Range Interpretation Comments TOTAL PROTEIN (test code = PROT) gram/dL 6.4-8.2 ALBUMIN (test code = ALB) g/dL 3.4-5.0 GLOBULIN (test code = GLOB) gram/dL 2.7-4.2 ALBUMIN/GLOBULIN RATIO (test code = 0.75-1.50 A/G) BILIRUBIN TOTAL (test code = BILT) mg/dL 0.0-1.0 BILIRUBIN DIRECT (test code = BILD) mg/dL 0.0-0.20 SGOT/AST (test code = AST) IUnit/L 15-37 SGPT/ALT (test code = ALT) IUnit/L 12-78 ALKALINE PHOSPHATASE TOTAL (test IUnit/L 45-117 code = ALKP) [id number] 12:32:00 Test Item Value Reference Range Interpretation Comments LIPASE (test code = LIP) U/L 73.0-393.0 CBC W/O [id number] 12:24:00 Test Item Value Reference Range Interpretation Comments WHITE BLOOD CELL (test code = 10.5 K/mm3 4.5-12.5 N WBC) RED BLOOD CELL (test code = 5.08 mill/mm3 3.7-5.2 N RBC) HEMOGLOBIN (test code = HGB) 13.1 gram/dL 11.5-15.5 N HEMATOCRIT (test code = HCT) 40.3 % 36.0-46.0 N MEAN CELL VOLUME (test code = 79.3 fL 80-98 L MCV) MEAN CELL HGB (test code = MCH) 25.8 picogram 27.0-33.0 L MEAN CELL HGB CONCETRATION 32.5 gram/dL 33.0-36.0 L (test code = MCHC) RED CELL DISTRIBUTION WIDTH 13.6 % 11.6-16.2 N (test code = RDW) PLATELET COUNT (test code = 279 K/mm3 150-450 N PLT) MEAN PLATELET VOLUME (test code 10.2 fL 6.7-11.0 N = MPV) CBC W/O [id number] 12:19:00 Test Item Value Reference Range Interpretation Comments WHITE BLOOD CELL (test code = K/mm3 4.5-12.5 WBC) RED BLOOD CELL (test code = RBC) mill/mm3 3.7-5.2 HEMOGLOBIN (test code = HGB) 13.1 gram/dL 11.5-15.5 N HEMATOCRIT (test code = HCT) 40.3 % 36.0-46.0 N MEAN CELL VOLUME (test code = fL 80-98 MCV) MEAN CELL HGB (test code = MCH) picogram 27.0-33.0 MEAN CELL HGB CONCETRATION (test gram/dL 33.0-36.0 code = MCHC) RED CELL DISTRIBUTION WIDTH % 11.6-16.2 (test code = RDW) PLATELET COUNT (test code = PLT) K/mm3 150-450 MEAN PLATELET VOLUME (test code fL 6.7-11.0 = MPV) Urine [id number] 06:50:00 Test Item Value Reference Range Interpretation Comments Urine WBC (test code = 5821-4) 0-5 0-5 [facility] [id number] 06:50:00 Test Item Value Reference Range Interpretation Comments Urine RBC (test code = 50349-2) NONE 0-5 [facility] [id number] 06:50:00 Test Item Value Reference Range Interpretation Comments Urine Bacteria (test code = 18671-3) MODERATE NONE H [facility] Epithelial [id number] 06:50:00 Test Item Value Reference Range Interpretation Comments Urine Epithelial Cells (test code = MODERATE NONE 02157-1) [facility] [id number] 06:41:00 Test Item Value Reference Range Interpretation Comments Urine Test (test code = NEGATIVE NEGATIVE 2106-3) [facility] [id number] 06:40:00 Test Item Value Reference Range Interpretation Comments Urine Color (test code = 5778-6) YELLOW YELLOW [facility] [id number] 06:40:00 Test Item Value Reference Range Interpretation Comments Urine Clarity (test code = 01982-2) CLEAR CLEAR [facility] Specific [id number] 06:40:00 Test Item Value Reference Range Interpretation Comments Urine Specific [place] (test code = 1.020 1.010-1.025 5811-5) [facility] [id number] 06:40:00 Test Item Value Reference Range Interpretation Comments Urine pH (test code = 44993-1) 6.5 5-7 [facility] Leukocyte [id number] 06:40:00 Test Item Value Reference Range Interpretation Comments Urine Leukocyte Esterase (test code NEGATIVE NEGATIVE = 34095-2) [facility] [id number] 06:40:00 Test Item Value Reference Range Interpretation Comments Urine Nitrite (test code = 62859-0) NEGATIVE NEGATIVE [facility] [id number] 06:40:00 Test Item Value Reference Range Interpretation Comments Urine Protein (test code = 32525-4) NEGATIVE NEGATIVE [facility] Glucose (UA)2018-07-18 06:40:00 Test Item Value Reference Range Interpretation Comments Urine Glucose (UA) (test code = NEGATIVE NEGATIVE 36285-8) [facility] [id number] 06:40:00 Test Item Value Reference Range Interpretation Comments Urine Ketones (test code = 94492-9) NEGATIVE NEGATIVE [facility] [id number] 06:40:00 Test Item Value Reference Range Interpretation Comments Urine Urobilinogen (test code = 0.2 0.2-1 02793-4) [facility] [id number] 06:40:00 Test Item Value Reference Range Interpretation Comments Urine Bilirubin (test code = 1977-8) NEGATIVE NEGATIVE [facility] [id number] 06:40:00 Test Item Value Reference Range Interpretation Comments Urine Blood (test code = 46977-3) NEGATIVE NEGATIVE [facility] CampusUS [id number] 06:07:00 [facility] [address] [address] Patient Name: VALERIANO FAULKNER MR #: [id number] : 1995 Age/Sex: 22/F Req #: [id number] Adm Physician: Ordered by: JOANIE SERVIN MD Report #: [id number] Location: ER Room/Bed: Procedure: [id number] US/USGALLBLADDER Exam Date: 07/18/18 Exam Time: 0526 REPORT STATUS: Signed EXAM: Right Upper Quadrant Ultrasound INDICATION: ruq pain Y COMPARISON: None. TECHNIQUE: Transverse and longitudinal images of the right upper abdomen were obtained. FINDINGS: Liver: Size: 15.7 cm in the right midc lavicular line, normal Appearance: Normal echogenicity, smooth contour Mass: No focal masses Gallbladder: Stones/Sludge: Shadowing gallstone in neck. Wall: 0.3 cm Appearance: No pericholecystic fluid or hydrops. Sonographic Escudero's Sign: Negative Bile Ducts: Intrahepatic Ducts: No dilatation Extrahepatic Ducts: Common bile duct measures 0.3 cm, no dilatation Pancreas: Not well visualized. Right Kidney: Size:9.3 cm Echogenicity: Normal Parenchymal thickness: Normal Collecting system: No hydronephrosis Stones: None Cyst/Mass: None Vessels: Aorta: Not well vi sualized. Inferior Vena Cava: Visualized portions are normal Main Portal Vein: 0.7 cm,normal size with hepatopetal flow. Free Fluid: No ascites or pleural effusion IMPRESSION: Cholelithiasis without additional signs of cholecystitis. Signed by: Dr.Babak Lolis MD on 07/18/2018 6:09 AM Dictated By: SALINA NEWTON MD 8 Transcribed By: EUGENIO on 07/18/18608 COPY TO: JOANIE SERVIN MDSodium Level 2018-07-18 05:41:00 Test Item Value Reference Range Interpretation Comments Sodium Level (test code = 2951-2) 135 136-145 L [facility] CampusPotassium [id number] 05:41:00 Test Item Value Reference Range Interpretation Comments Potassium Level (test code = 2823-3) 3.7 3.5-5.1 [facility] CampusChloride [id number] 05:41:00 Test Item Value Reference Range Interpretation Comments Chloride Level (test code = 2075-0) 104 98-107 [facility] CampusCarbon Dioxide [id number] 05:41:00 Test Item Value Reference Range Interpretation Comments Carbon Dioxide Level (test code = -2027-9) [facility] CampusAnion [id number] 05:41:00 Test Item Value Reference Range Interpretation Comments Anion Gap (test code = 56958-0) 9.7 8-16 [facility] CampusBlood Urea [id number] 05:41:00 Test Item Value Reference Range Interpretation Comments Blood Urea Nitrogen (test code = 09-08 3094-0) [facility] CampusCreatinine2019-06-04 05:41:00 Test Item Value Reference Range Interpretation Comments Creatinine (test code = 2160-0) 0.82 0.57-1.11 [facility] CampusBUN/Creatinine [id number] 05:41:00 Test Item Value Reference Range Interpretation Comments BUN/Creatinine Ratio (test code = 03 08- 3097-3) [facility] CampusEstimat Glomerular Filtration [id number] 05:41:00 Test Item Value Reference Range Interpretation Comments Estimat Glomerular Filtration Rate > 60 >60 (test code = 310182995) Ranges were taken from the National Kidney Disease Education Program and the National Kidney Foundation literature.Reference ranges:60 or greater: Hcests19- 59 (for 3 consecutive months): Chronic kidneydisease 15 or less: Kidney failure [facility] CampusGlucose [id number] 05:41:00 Test Item Value Reference Range Interpretation Comments Glucose Level (test code = VME4121) 114 74-118 [facility] CampusCalcium [id number] 05:41:00 Test Item Value Reference Range Interpretation Comments Calcium Level (test code = 17163-4) 9.6 8.4-10.2 [facility] CampusTotal [id number] 05:41:00 Test Item Value Reference Range Interpretation Comments Total Bilirubin (test code = 1975-2) 0.3 0.2-1.2 [facility] CampusAspartate Amino Transf (AST/SGOT)2018-07-18 05:41:00 Test Item Value Reference Range Interpretation Comments Aspartate Amino Transf (AST/SGOT) (test 13 5-34 code = Aspartate Amino Transf (AST/SGOT)) [facility] CampusAlanine Aminotransferase (ALT/SGPT)2018-07-18 05:41:00 Test Item Value Reference Range Interpretation Comments Alanine Aminotransferase (ALT/SGPT) 15 0-55 (test code = 1742-6) [facility] CampusTotal [id number] 05:41:00 Test Item Value Reference Range Interpretation Comments Total Protein (test code = 2885-2) 7.6 6.5-8.1 [facility] CampusAlbumin2019-06-04 05:41:00 Test Item Value Reference Range Interpretation Comments Albumin (test code = 1751-7) 3.6 3.5-5.0 [facility] CampusGlobulin2019-06-04 05:41:00 Test Item Value Reference Range Interpretation Comments Globulin (test code = 24540-4) 4.0 2.3-3.5 H [facility] CampusAlbumin/Globulin [id number] 05:41:00 Test Item Value Reference Range Interpretation Comments Albumin/Globulin Ratio (test code = 0.9 0.8-2.0 1759-0) [facility] CampusAlkaline Ozsncbgempu6199-06-81 05:41:00 Test Item Value Reference Range Interpretation Comments Alkaline Phosphatase (test code = 57 40-150 6768-6) [facility] CampusAmylase [id number] 05:41:00 Test Item Value Reference Range Interpretation Comments Amylase Level (test code = 1798-8) 72 25-125 [facility] CampusLipase2019-06-04 05:41:00 Test Item Value Reference Range Interpretation Comments Lipase (test code = 3040-3) 25 8-78 [facility] CampusLymphocytes # (Auto)2018-07-18 05:23:00 Test Item Value Reference Range Interpretation Comments Lymphocytes # (Auto) (test code = 3.4 1.0-3.2 H 21669-2) [facility] CampusMonocytes # (Auto)2018-07-18 05:23:00 Test Item Value Reference Range Interpretation Comments Monocytes # (Auto) (test code = 742-7) 0.8 0.2-0.8 [facility] CampusEosinophils # (Auto)2018-07-18 05:23:00 Test Item Value Reference Range Interpretation Comments Eosinophils # (Auto) (test code = 0.4 0.0-0.4 711-2) [facility] CampusBasophils # (Auto)2018-07-18 05:23:00 Test Item Value Reference Range Interpretation Comments Basophils # (Auto) (test code = 704-7) 0.0 0.0-0.1 [facility] CampusAbsolute Immature Granulocyte ([id number] 05:23:00 Test Item Value Reference Range Interpretation Comments Absolute Immature Granulocyte (auto 0.05 0-0.1 (test code = Absolute Immature Granulocyte (auto) [facility] CampusWhite Blood [id number] 05:23:00 Test Item Value Reference Range Interpretation Comments White Blood Count (test code = 6690-2) 12.91 4.8-10.8 H [facility] CampusRed Blood [id number] 05:23:00 Test Item Value Reference Range Interpretation Comments Red Blood Count (test code = 789-8) 5.23 3.6-5.1 H [facility] CampusHemoglobin2019-06-04 05:23:00 Test Item Value Reference Range Interpretation Comments Hemoglobin (test code = 02241-5) 13.2 12.0-16.0 [facility] CampusHematocrit2019-06-04 05:23:00 Test Item Value Reference Range Interpretation Comments Hematocrit (test code = 4544-3) 41.5 34.2-44.1 [facility] CampusMean Corpuscular [id number] 05:23:00 Test Item Value Reference Range Interpretation Comments Mean Corpuscular Volume (test code = 79.3 81-99 L 787-2) [facility] CampusMean Corpuscular [id number] 05:23:00 Test Item Value Reference Range Interpretation Comments Mean Corpuscular Hemoglobin (test code 25.2 28-32 L = 785-6) [facility] CampusMean Corpuscular Hemoglobin [id number] 05:23:00 Test Item Value Reference Range Interpretation Comments Mean Corpuscular Hemoglobin Concent 31.8 31-35 (test code = 786-4) [facility] CampusRed Cell Distribution [id number] 05:23:00 Test Item Value Reference Range Interpretation Comments Red Cell Distribution Width (test code 14.6 11.7-14.4 H = 99580-2) [facility] CampusPlatelet [id number] 05:23:00 Test Item Value Reference Range Interpretation Comments Platelet Count (test code = 777-3) 294 140-360 [facility] CampusNeutrophils (%) (Auto)2018-07-18 05:23:00 Test Item Value Reference Range Interpretation Comments Neutrophils (%) (Auto) (test code = 63.7 38.7-80.0 38991-2) [facility] CampusLymphocytes (%) (Auto)2018-07-18 05:23:00 Test Item Value Reference Range Interpretation Comments Lymphocytes (%) (Auto) (test code = 26.6 18.0-39.1 736-9) [facility] CampusMonocytes (%) (Auto)2018-07-18 05:23:00 Test Item Value Reference Range Interpretation Comments Monocytes (%) (Auto) (test code = 5.8 4.4-11.3 5905-5) [facility] CampusEosinophils (%) (Auto)2018-07-18 05:23:00 Test Item Value Reference Range Interpretation Comments Eosinophils (%) (Auto) (test code = 3.2 0.0-6.0 713-8) [facility] CampusBasophils (%) (Auto)2018-07-18 05:23:00 Test Item Value Reference Range Interpretation Comments Basophils (%) (Auto) (test code = 0.3 0.0-1.0 706-2) [facility] CampusIM GRANULOCYTES %2018-07-18 05:23:00 Test Item Value Reference Range Interpretation Comments IM GRANULOCYTES % (test code = IM 0.4 0.0-1.0 GRANULOCYTES %) [facility] CampusNeutrophils # (Auto)2018-07-18 05:23:00 Test Item Value Reference Range Interpretation Comments Neutrophils # (Auto) (test code = 8.2 2.1-6.9 H 751-8) [facility] CampusCHEST 2 [id number] 05:18:[address] [address] Patient Name: VALERIANO FAULKNER MR #: [id number] : 1995 Age/Sex: 22/F Req #: [id number] Adm Physician: Ordered by: JOANIE SERVIN MD Report #: [id number] Location: ER Room/Bed: Procedure: [id number] DX/CHEST 2 VIEWS Exam Date: 07/18/18 Exam Time: 044 REPORT STATUS: Signed EXAMINATION: CHEST 2 VIEWS INDICATION: cough for 1 month [id number] Y COMPARISON: None FINDINGS: PA and lateral views TUBES and LINES: None. LUNGS: Lungs are well inflated. There is no evidence of p neumonia or pulmonary edema. PLEURA: No pleural effusion or pneumothorax. HEART AND MEDIASTINUM: The cardiomediastinal silhouette is unremarkable. BONES AND SOFT TISSUES: No acute osseous lesion. Soft tissues are unremarkable. UPPER ABDOMEN: No free air under the diaphragm. IMPRESSION: No acute thoracic abnormality. Signed by: Dr. Salina Newton MD on 07/18/2018 5:18 AM Dictated By: SALINA NEWTON MD 7 Transcribed By: EUGENIO on 07/18/18517 COPY TO: JOANIE SERVIN MDURINALYSIS [id number] 19:09:00 Test Item Value Reference Range Interpretation Comments UA COLOR (test code = COLU) YELLOW YELLOW UA APPEARANCE (test code = CLEAR CLEAR APPU) UA GLUCOSE DIPSTICK (test NEGATIVE mg/dL NEGATIVE code = DGLUU) UA BILIRUBIN DIPSTICK (test NEGATIVE mg/dL NEGATIVE code = BILU) UA KETONE DIPSTICK (test code TRACE mg/dL NEGATIVE A = KETU) UA SPECIFIC GRAVITY (test 1.030 1.001-1.035 code = SGU) UA BLOOD DIPSTICK (test code Negative mg/dL NEGATIVE = LILIAM) UA PH DIPSTICK (test code = 5.5 5.0-8.0 PORFIRIO) UA PROTEIN DIPSTICK (test NEGATIVE mg/dL NEGATIVE code = PROU) UA UROBILINIOGEN DIPSTICK 2.0 (1+) mg/dL NEGATIVE A (test code = URO) UA NITRITE DIPSTICK (test NEGATIVE NEGATIVE code = KAY) UA LEUKOCYTE ESTERASE W NEGATIVE Viri/uL NEGATIVE REFLEX (test code = LEUUR) UA WBC (test code = WBCU) per HPF 0-5 UA RBC (test code = RBCU) per HPF 0-5 UA EPITHELIAL CELLS (test per HPF Few code = EPIU) UA BACTERIA (test code = per HPF NONE BACU) Urine Source? Clean CatchURINALYSIS [id number] 19:09:00 Test Item Value Reference Range Interpretation Comments UA COLOR (test code = COLU) YELLOW YELLOW UA APPEARANCE (test code = CLEAR CLEAR APPU) UA GLUCOSE DIPSTICK (test NEGATIVE mg/dL NEGATIVE code = DGLUU) UA BILIRUBIN DIPSTICK (test NEGATIVE mg/dL NEGATIVE code = BILU) UA KETONE DIPSTICK (test code TRACE mg/dL NEGATIVE A = KETU) UA SPECIFIC GRAVITY (test 1.030 1.001-1.035 code = SGU) UA BLOOD DIPSTICK (test code Negative mg/dL NEGATIVE = LILIAM) UA PH DIPSTICK (test code = 5.5 5.0-8.0 PORFIRIO) UA PROTEIN DIPSTICK (test NEGATIVE mg/dL NEGATIVE code = PROU) UA UROBILINIOGEN DIPSTICK 2.0 (1+) mg/dL NEGATIVE A (test code = URO) UA NITRITE DIPSTICK (test NEGATIVE NEGATIVE code = KAY) UA LEUKOCYTE ESTERASE W NEGATIVE Viri/uL NEGATIVE REFLEX (test code = LEUUR) UA WBC (test code = WBCU) 0-5 per HPF 0-5 UA RBC (test code = RBCU) 0-2 #/HPF 0-5 UA EPITHELIAL CELLS (test FEW per HPF FEW code = EPIU) UA BACTERIA (test code = FEW #/HPF NONE A BACU) UA MUCUS (test code = MUCU) FEW #/LPF FEW Urine Source? Clean Catch- CT ABD PELVIS [id number] 19:03:00 Name: VALERIANO FAULKNER [facility] : 1995 Age/S: 22 / F [address] [facility] Unit #: [id number] Loc: [place] [address] Phys: Prakash Conn MD Acct: [id number] Dis Date: Status: REG ER PHONE #: [phone] Exam Date: 06/22/2018 1840 FAX #: [phone] Reason: RLQ abdpain fever anorexia EXAMS: CPTCODE: [id number] CT ABD PELVIS W/CONT [id number] REAS ON FOR EXAM: RLQ abd pain fever anorexia EXAM ORDER DATE: 06/22/2018 5:18 PM Ordering Irineo: Prakash Conn MD PROCEDURE: - CT ABD PELVIS W/CONT COMPARISON: FINDINGS: CT images of the abdomen and pelvis were obtained with IV and without oral contrast at 5mm. Dose modulation, iterative reconstruction, and/or weight based adjustment of the MA/KV was utilized to reduce the radiation dose to as low as reasonably achievable. Intravenous contrast: 100cc of Omnipaque 370. The liver, spleen, pancreas are grossly within normal limits. The gallbladder is unremarkable by CT The kidneys are within normal limits. The urinary bladder is contracted The colon, small bowel, and stomach are within normal limits without evidence of obstruction. Theappendix is unremarkable. No evidence of free air or free fluid. The uterus is unremarkable. IMPRESSION: No acute findings in the abdomen at 1903 Reported and signed by: Pramod Barton M.D. CC: Prakash Conn MD; Jose Austin MD Technologist:RT BARBIE(R) CT CTDI: DLP: Trnscb Date/Time: 06/22/2018 (1902) t.SDR.VTL Orig Print D/T: S: 06/22/2018 (1905) PAGE 1 Signed Report PROCALCITONIN (PCT)2018-06-22 18:50:00 Test Item Value Reference Range Interpretation Comments PROCALCITONIN (PCT) 0.09 ng/ml Concentr ation (test code = PROCAL) Interpr etation (ng/mL) ------- ------- <0.51 Sepsis is not likely. Local ba cterial infection is po ssible. (LOW RISK for progre ssion to Sepsis) 0.51 - 2.00 Sepsis is possible, but o ther conditions are known to elevate PCT as well. (M ODERATE RISK for progre ssion to Sepsis) > 2. 00 Sepsis is l ikely, unless other ca uses are known. (HIGH RISK for progression to Severe Sepsis or Septic Shock ) 10.00 High likelihood of S evere Sepsis or Septi c or higher Sho k. *Inc reased PCT levels may not always be relat ed to systemic bacter ial infection.*Low PCT levels do not automatically e xclude the presence of bacterial infection.*All results should be inter preted taking into acc ount the patients h istory. LACTIC [id number] 18:39:00 Test Item Value Reference Range Interpretation Comments LACTIC ACID (test code = LACT) 1.6 mmol/L 0.4-1.9 N BASIC METABOLIC [id number] 18:14:00 Test Item Value Reference Range Interpretation Comments SODIUM (test code = 138 mmol/L 136-145 N NA) POTASSIUM (test code 3.6 mmol/L 3.5-5.1 N = K) CHLORIDE (test code = 106.0 mmol/L 98-107 N CL) CARBON DIOXIDE (test 25.0 mmol/L 21-32 N code = CO2) ANION GAP (test code 10.6 10-20 N = GAP) GLUCOSE (test code = 100 mg/dL 74-106 N GLU) BLOOD UREA NITROGEN 13 mg/dL 7-18 N (test code = BUN) GLOMERULAR FILTRATION > 60 mL/min >=60 Estima octavio GFR by RATE (test code = using Ray fied MDRD GFR) formula.Chronic kidney disease is defined as ei er kidney damageor GFR <60 mL/min/1.73 m2 for >3 months. CREATININE (test code 0.90 mg/dL 0.55-1.02 N Note change in = CREAT) reference range due to change in reagent. BUN/CREATININE RATIO 14.4 10-20 N (test code = BUN/CREA) CALCIUM (test code = 8.7 mg/dL 8.5-10.1 N CA) HEPATIC FUNCTION [id number] 18:14:00 Test Item Value Reference Range Interpretation Comments TOTAL PROTEIN (test 8.1 gram/dL 6.4-8.2 N code = PROT) ALBUMIN (test code = 3.8 g/dL 3.4-5.0 N ALB) GLOBULIN (test code = 4.3 gram/dL 2.7-4.2 H GLOB) ALBUMIN/GLOBULIN RATIO 0.9 0.75-1.50 N (test code = A/G) BILIRUBIN TOTAL (test 0.60 mg/dL 0.0-1.0 N code = BILT) BILIRUBIN DIRECT (test 0.16 mg/dL 0.0-0.20 N code = BILD) SGOT/AST (test code = 12 IUnit/L 15-37 L AST) SGPT/ALT (test code = 17 IUnit/L 12-78 N ALT) ALKALINE PHOSPHATASE 67 IUnit/L 45-117 N Note change in TOTAL (test code = reference range due ALKP) to change in reagent. [id number] 18:14:00 Test Item Value Reference Range Interpretation Comments LIPASE (test code = LIP) 84 U/L 73.0-393.0 N HCG SERUM [id number] 18:14:00 Test Item Value Reference Range Interpretation Comments HCG SERUM QUAL (test NEGATIVE NEGATIVE This HC GQL test is NOT code = HCGQL) applicable for MALE patients.Check with nurse about probable order error.If Tumor Marker Test needed, nu rse should order test "HCG TU"(Test #550.75200)---- - [id number] 18:14:00 Test Item Value Reference Range Interpretation Comments TROPONIN-I (test code = TROPI) <0.015 ng/mL 0-0.045 N BASIC METABOLIC [id number] 18:02:00 Test Item Value Reference Range Interpretation Comments SODIUM (test code = NA) 138 mmol/L 136-145 N POTASSIUM (test code = K) 3.6 mmol/L 3.5-5.1 N CHLORIDE (test code = CL) 106.0 mmol/L 98-107 N CARBON DIOXIDE (test code = CO2) mmol/L 21-32 ANION GAP (test code = GAP) 10-20 GLUCOSE (test code = GLU) mg/dL 74-106 BLOOD UREA NITROGEN (test code = mg/dL 7-18 BUN) GLOMERULAR FILTRATION RATE (test mL/min >=60 code = GFR) CREATININE (test code = CREAT) mg/dL 0.55-1.02 BUN/CREATININE RATIO (test code 12-03 = BUN/CREA) CALCIUM (test code = CA) mg/dL 8.5-10.1 HEPATIC FUNCTION [id number] 18:02:00 Test Item Value Reference Range Interpretation Comments TOTAL PROTEIN (test code = PROT) gram/dL 6.4-8.2 ALBUMIN (test code = ALB) g/dL 3.4-5.0 GLOBULIN (test code = GLOB) gram/dL 2.7-4.2 ALBUMIN/GLOBULIN RATIO (test code = 0.75-1.50 A/G) BILIRUBIN TOTAL (test code = BILT) mg/dL 0.0-1.0 BILIRUBIN DIRECT (test code = BILD) mg/dL 0.0-0.20 SGOT/AST (test code = AST) IUnit/L 15-37 SGPT/ALT (test code = ALT) IUnit/L 12-78 ALKALINE PHOSPHATASE TOTAL (test IUnit/L 45-117 code = ALKP) [id number] 18:02:00 Test Item Value Reference Range Interpretation Comments LIPASE (test code = LIP) U/L 73.0-393.0 HCG SERUM [id number] 18:02:00 Test Item Value Reference Range Interpretation Comments HCG SERUM QUAL (test code = HCGQL) NEGATIVE [id number] 18:02:00 Test Item Value Reference Range Interpretation Comments TROPONIN-I (test code = TROPI) ng/mL 0-0.045 BASIC METABOLIC [id number] 18:02:00 Test Item Value Reference Range Interpretation Comments SODIUM (test code = NA) 138 mmol/L 136-145 N POTASSIUM (test code = K) 3.6 mmol/L 3.5-5.1 N CHLORIDE (test code = CL) 106.0 mmol/L 98-107 N CARBON DIOXIDE (test code = CO2) mmol/L 21-32 ANION GAP (test code = GAP) 10-20 GLUCOSE (test code = GLU) mg/dL 74-106 BLOOD UREA NITROGEN (test code = mg/dL 7-18 BUN) GLOMERULAR FILTRATION RATE (test mL/min >=60 code = GFR) CREATININE (test code = CREAT) mg/dL 0.55-1.02 BUN/CREATININE RATIO (test code 12-03 = BUN/CREA) CALCIUM (test code = CA) mg/dL 8.5-10.1 HEPATIC FUNCTION [id number] 18:02:00 Test Item Value Reference Range Interpretation Comments TOTAL PROTEIN (test code = PROT) gram/dL 6.4-8.2 ALBUMIN (test code = ALB) g/dL 3.4-5.0 GLOBULIN (test code = GLOB) gram/dL 2.7-4.2 ALBUMIN/GLOBULIN RATIO (test code = 0.75-1.50 A/G) BILIRUBIN TOTAL (test code = BILT) mg/dL 0.0-1.0 BILIRUBIN DIRECT (test code = BILD) mg/dL 0.0-0.20 SGOT/AST (test code = AST) IUnit/L 15-37 SGPT/ALT (test code = ALT) IUnit/L 12-78 ALKALINE PHOSPHATASE TOTAL (test IUnit/L 45-117 code = ALKP) [id number] 18:02:00 Test Item Value Reference Range Interpretation Comments LIPASE (test code = LIP) U/L 73.0-393.0 HCG SERUM [id number] 18:02:00 Test Item Value Reference Range Interpretation Comments HCG SERUM QUAL (test NEGATIVE NEGATIVE This HC GQL test is NOT code = HCGQL) applicable for MALE patients.Check with nurse about probable order error.If Tumor Marker Test needed, nu rse should order test "HCG TU"(Test #550.85144)---- - [id number] 18:02:00 Test Item Value Reference Range Interpretation Comments TROPONIN-I (test code = TROPI) ng/mL 0-0.045 CBC W/AUTO [id number] 17:57:00 Test Item Value Reference Range Interpretation Comments WHITE BLOOD CELL (test code = 10.3 K/mm3 4.5-12.5 N WBC) RED BLOOD CELL (test code = 5.41 mill/mm3 3.7-5.2 H RBC) HEMOGLOBIN (test code = HGB) 13.7 gram/dL 11.5-15.5 N HEMATOCRIT (test code = HCT) 42.5 % 36.0-46.0 N MEAN CELL VOLUME (test code = 78.6 fL 80-98 L MCV) MEAN CELL HGB (test code = MCH) 25.3 picogram 27.0-33.0 L MEAN CELL HGB CONCETRATION 32.2 gram/dL 33.0-36.0 L (test code = MCHC) RED CELL DISTRIBUTION WIDTH 14.1 % 11.6-16.2 N (test code = RDW) RED CELL DISTRIBUTION WIDTH SD 39.6 fL 37.0-51.0 N (test code = RDW-SD) PLATELET COUNT (test code = 273 K/mm3 150-450 N PLT) MEAN PLATELET VOLUME (test code 10.6 fL 6.7-11.0 N = MPV) NEUTROPHIL % (test code = NT%) 86.1 % 39.0-69.0 H IMMATURE GRANULOCYTE % (test 0.3 % 0.0-5.0 N code = IG%) LYMPHOCYTE % (test code = LY%) 9.3 % 25.0-55.0 L MONOCYTE % (test code = MO%) 3.9 % 0.0-10.0 N EOSINOPHIL % (test code = EO%) 0.3 % 0.0-5.0 N BASOPHIL % (test code = BA%) 0.1 % 0.0-1.0 N NUCLEATED RBC % (test code = 0.0 % 0-0 N NRBC%) NEUTROPHIL # (test code = NT#) 8.85 K/mm3 1.8-7.7 H IMMATURE GRANULOCYTE # (test 0.03 x10 3/uL 0-0.03 N code = IG#) LYMPHOCYTE # (test code = LY#) 0.96 K/mm3 1.0-5.0 L MONOCYTE # (test code = MO#) 0.40 K/mm3 0-0.8 N EOSINOPHIL # (test code = EO#) 0.03 K/mm3 0.0-0.5 N BASOPHIL # (test code = BA#) 0.01 K/mm3 0.0-0.2 N NUCLEATED RBC # (test code = 0.00 K/mm3 0.0-0.1 N NRBC#) CBC W/AUTO [id number] 17:53:00 Test Item Value Reference Range Interpretation Comments WHITE BLOOD CELL (test code = K/mm3 4.5-12.5 WBC) RED BLOOD CELL (test code = RBC) mill/mm3 3.7-5.2 HEMOGLOBIN (test code = HGB) 13.7 gram/dL 11.5-15.5 N HEMATOCRIT (test code = HCT) 42.5 % 36.0-46.0 N MEAN CELL VOLUME (test code = fL 80-98 MCV) MEAN CELL HGB (test code = MCH) picogram 27.0-33.0 MEAN CELL HGB CONCETRATION (test gram/dL 33.0-36.0 code = MCHC) RED CELL DISTRIBUTION WIDTH % 11.6-16.2 (test code = RDW) RED CELL DISTRIBUTION WIDTH SD fL 37.0-51.0 (test code = RDW-SD) PLATELET COUNT (test code = PLT) K/mm3 150-450 MEAN PLATELET VOLUME (test code fL 6.7-11.0 = MPV) NEUTROPHIL % (test code = NT%) % 39.0-69.0 IMMATURE GRANULOCYTE % (test % 0.0-5.0 code = IG%) LYMPHOCYTE % (test code = LY%) % 25.0-55.0 MONOCYTE % (test code = MO%) % 0.0-10.0 EOSINOPHIL % (test code = EO%) % 0.0-5.0 BASOPHIL % (test code = BA%) % 0.0-1.0 NEUTROPHIL # (test code = NT#) K/mm3 1.8-7.7 LYMPHOCYTE # (test code = LY#) K/mm3 1.0-5.0 MONOCYTE # (test code = MO#) K/mm3 0-0.8 EOSINOPHIL # (test code = EO#) K/mm3 0.0-0.5 BASOPHIL # (test code = BA#) K/mm3 0.0-0.2 - XR CHEST 1 [id number] 17:44:00 FAX: Prakash Conn MD [phone] [place]: St: [facility] FAX: Jose Rodriguez MD [phone] Name: VALERIANO FAULKNER [facility] : 1995 Age/S: 22/F [address] Unit #: [id number] Loc: [place] [address] Phys: Prakash Conn MD Acct: [id number] Dis Date: Status: REG ER PHONE #: [phone] Exam Date: 06/22/2018 1744 FAX #: [phone] Reason: CODE SEPSIS EXAMS: CPT CODE: [id number] XR CHEST 1 V [id number] REASON FOR EXAM: CODE SEPSIS EXAM ORDER DATE: 06/22/2018 5:18 PM Ordering M.D.:Prakash Conn MD PROCEDURE: - XR CHEST 1 V COMPARISON: FINDINGS: Portable AP frontal view of the chest obtained at 5:38 PM shows clear lungs without evidence of consolidation. There is no evidence of effusion. The heart size is within normal limits. Pulmonary vasculatures are unremarkable. IMPRESSION: No active disease. at 4630 Reported and signed by: Pramod Barton M.D. CC: Prakash Conn MD; Jose Austin MD Technologist: PEPPER ARIAS Trnscrd Date/Time/By: 06/22/2018 (6553) :By: JenniferVTL Orig Print D/T: S: 06/22/2018 (9384) PAGE 1 Signed Report- XR FINGER(S) 2+V [id number] 20:31:00 FAX: Jose Rodriguez MD [phone] [place]: B St: PRE FAX: Arsalan Mcdowell [facility] [phone] Name: VALERIANO FAULKNER [facility] : 1995 Age/S: 22/F [address] Unit #: [id number] Loc: [place] [address] Phys: Arsalan DupreeP Acct: Rosa [id number] Dis Date: Status: PRE ER PHONE #: [phone] Exam Date: 05/24/20181958 FAX #: [phone] Reason: SMASHEDFINGER IN DOOR EXAMS: CPT CODE: [id number] XR FINGER(S) 2+[place] [id number] REASON FOR EXAM: SMASHED FINGER IN DOOR EXAM ORDER DATE: 05/24/2018 7:40 PM Ordering MEvelinDEvelin: Arsalan Dupree PROCEDURE: - XR FINGER(S) 2+V RT FINDINGS: 3 views of the right thumb were obtained. The osseous structures are unremarkable in size and shape. The joint spaces are maintained. No evidence of fracture. IMPRESSION: Unremarkable right thumb at 2030 Reported and signed by: Pramod Barton M.D. CC: Jose Austin MD; Arsalan Dupree Technologist: PEPPER ARIAS [facility] Date/Time/By: 05/24/2018 (2030) : By: JenniferVTL Orig Print D/T: S: 05/24/2018 (2033) PAGE 1 Signed Report- XR FINGER(S) 2+V [id number] 20:31:00 FAX: Jose Rodriguez MD [phone] [place]: B St: DEP FAX: Arsalan Mcdowell [facility] [phone] Name: VALERIANO FAULKNER [facility] : 1995 Age/S: 22/F [address] Unit #: [id number] Loc: [place] [address] Phys: Arsalan Dupree Acct: Rosa [id number] Dis Date: Status: DEP ER PHONE #: [phone] Exam Date: 05/24/20181958 FAX #: [phone] Reason: SMASHEDFINGER IN DOOR EXAMS: CPT CODE: [id number] XR FINGER(S) 2+[place] [id number] REASON FOR EXAM: SMASHED FINGER IN DOOR EXAM ORDER DATE: 05/24/2018 7:40 PM Ordering MZabrina.: Arsalan Dupree PROCEDURE: - XR FINGER(S) 2+V RT FINDINGS: 3 views of the right thumb were obtained. The osseous structures are unremarkable in size and shape. The joint spaces are maintained. No evidence of fracture. IMPRESSION: Unremarkable right thumb at 2030 Reported and signed by: Pramod Barton M.D. CC: Jose Austin MD; Arsalan Dupree Technologist: PEPPER ARIAS Trnscrd Date/Time/By: 05/24/2018 (2030) : By: NaveedL Orig Print D/T: S: 05/24/2018 (2033) PAGE 1 Signed Report- XR FINGER(S) 2+V [id number] 20:31:00 FAX: Jose Rodriguez MD [phone] [place]: St: [facility] FAX: Arsalan McdowellP [phone] Name: VALERIANO FAULKNER [facility] : 1995 Age/S: 22/F [address] Unit #: [id number] Loc: [place] [address] Phys: Arsalan Dupree Acct: [id number] Dis Date: Status: DEP ER PHONE #: [phone] Exam Date: 05/24/20181958 FAX #: [phone] Reason: SMASHEDFINGER IN DOOR EXAMS: CPT CODE: [id number] XR FINGER(S) 2+[place] [id number] REASON FOR EXAM: SMASHED FINGER IN DOOR EXAM ORDER DATE: 05/24/2018 7:40 PM Ordering MCasper: Arsalan Dupree PROCEDURE: - XR FINGER(S) 2+V RT FINDINGS: 3 views of the right thumb were obtained. The osseous structures are unremarkable in size and shape. The joint spaces are maintained. No evidence of fracture.
--- NOTE | 2021-08-01 12:05 | ER ---
Nurse's Notes [facility] Name: Vijay Ann Age: 25 yrs Sex: Female : 1995 Arrival Date: 08/01/2021 Time: 09:32 Bed 12 Private MD: Diagnosis: Acute upper respiratory infection, unspecified Presentation: 08/01 09:36 Chief complaint: Patient states: chills, body aches, cough, congestion that began aa5 yesterday. Also reports sore throat. Hoarse voice noted. Coronavirus screen: congestion, cough unrelated to allergies, muscle pain, sore throat. Ebola Screen: No symptoms or risks identified at this time. Initial Sepsis Screen: Does the patient meet any 2 criteria? HR > 90 bpm. Does the patient have a suspected source of infection? No. Patient's initial sepsis screen is negative. Risk Assessment: Do you want to hurt yourself or someone else? Patient reports no desire to harm self or others. Onset of symptoms was July 2021. 09:36 Acuity: ZOIE 4 aa5 09:36 Method Of Arrival: Ambulatory aa5 Historical: - Allergies: 09:38 Morphine; aa5 - Home Meds: 09:38 Advair Diskus Inhl [Active]; Albuterol Inhl [Active]; aa5 - PMHx: 09:38 Asthma; aa5 - PSHx: 09:38 Cholecystectomy; Tonsillectomy; aa5 - Immunization history:: Adult Immunizations unknown. - Social history:: Smoking status: Patient denies any tobacco usage or history of. Screenin:13 Abuse screen: Denies threats or abuse. Denies injuries from another. Nutritional ss screening: No deficits noted. Tuberculosis screening: Never had TB. Fall Risk None identified. Assessment: 12:13 General: Appears in no apparent distress. comfortable, Behavior is calm, cooperative. ss Neuro: Level of Consciousness is awake, alert, obeys commands. Respiratory: Reports cough that is Respiratory effort is even, unlabored, Respiratory pattern is regular, symmetrical. GI: No signs and/or symptoms were reported involving the gastrointestinal system. Derm: Skin is intact, is healthy with good turgor, Skin is pink, warm \\T\\ dry. normal. Musculoskeletal: Circulation, motion, and sensation intact. Range of motion: intact in all extremities, Swelling absent. Vital Signs: 09:36 BP 103 / 65; Pulse 97; Resp 16 S; Temp 98.7(TE); Pulse Ox 100% on R/A; Weight 95.25 kg aa5 (R); Height 5 ft. 3 in. (160.02 cm) (R); 09:36 Body Mass Index 37.20 (95.25 kg, 160.02 cm) aa5 ED Course: 09:32 Patient arrived in ED. mr 09:36 Ekta Mercer FNP-C is [facility]. kb 09:36 Patricia Suresh MD is Attending Physician. kb 09:36 Arm band placed on. aa5 09:38 Triage completed. aa5 09:46 Kailey Wright, RN is Primary Nurse. ss 09:58 Bed in low position. Call light in reach. Side rails up X 1. Door closed. Noise mb7 minimized. Lights dimmed. Warm blanket given. 09:58 Flu Sent. mb7 10:13 COVID-19 SARS RT PCR (Document "Date of Onset" if Symptomatic) Sent. mb7 Administered Medications: No medications were administered Medication: 12:13 VIS not applicable for this client. ss Outcome: 12:05 Discharge ordered by MD. kb 12:13 Discharged to home ambulatory, with family. ss 12:13 Condition: good 12:13 Discharge instructions given to patient, Instructed on discharge instructions, follow up and referral plans. Demonstrated understanding of instructions, follow-up care. 12:14 Patient left the ED. ss Signatures: Ekta Mercer FNP-C FNP-Ckb Rivera, Mary mr MohanTigist RN RN aa Kailey Wright RN RN Jennifer Traore 7 Corrections: (The following items were deleted from the chart) 09:40 09:36 Pulse 97bpm; Resp 16bpm; Spontaneous; Pulse Ox 100% RA; Temp 98.7F Temporal; aa5 95.25 kg Reported; Height 5 ft. 3 in. Reported; BMI: 37.2; aa5
--- NOTE | 2021-08-01 12:05 | EDPHYS ---
Physician Documentation [facility] Name: Vijay Ann Age: 25 yrs Sex: Female : 1995 Arrival Date: 08/01/2021 Time: 09:32 Bed 12 Private MD: ED Physician Patricia Suresh HPI: 08/01 14:36 This 25 yrs old Female presents to ER via Ambulatory with complaints of Flu kb Symptoms. 14:36 The patient or guardian reports cough, that is intermittent, described as mild, flu kb symptoms, myalgias. Onset: The symptoms/episode began/occurred yesterday. Severity of symptoms: At their worst the symptoms were moderate, in the emergency department the symptoms are unchanged. Modifying factors: The symptoms are alleviated by nothing, the symptoms are aggravated by nothing. Associated signs and symptoms: Pertinent positives: sore throat. The patient has not experienced similar symptoms in the past. The patient has not recently seen a physician. Pt reports cough, congestion, sore throat, chills and bodyaches that started yesterday. Historical: - Allergies: 09:38 Morphine; aa5 - Home Meds: 09:38 Advair Diskus Inhl [Active]; Albuterol Inhl [Active]; aa5 - PMHx: 09:38 Asthma; aa5 - PSHx: 09:38 Cholecystectomy; Tonsillectomy; aa5 - Immunization history:: Adult Immunizations unknown. - Social history:: Smoking status: Patient denies any tobacco usage or history of. ROS: 14:36 Abdomen/GI: Negative for abdominal pain, nausea, vomiting, diarrhea, and constipation. kb 14:36 Constitutional: Positive for body aches, chills, malaise. 14:36 ENT: Positive for sinus congestion, sore throat. 14:36 Respiratory: Positive for cough. 14:36 All other systems are negative. Exam: 14:36 Constitutional: This is a well developed, well nourished patient who is awake, alert, kb and in no acute distress. Head/Face: Normocephalic, atraumatic. ENT: Moist Mucous membranes Cardiovascular: Regular rate and rhythm with a normal S1 and S2. No gallops, murmurs, or rubs. No pulse deficits. Respiratory: Respirations even and unlabored. No increased work of breathing. Talking in full sentences Abdomen/GI: Soft, non-tender. No distention Skin: Warm, dry with normal turgor. Normal color. MS/ Extremity: Pulses equal, no cyanosis. Neurovascular intact. Full, normal range of motion. Neuro: Awake and alert, GCS 15, oriented to person, place, time, and situation. Moves all extremities. Normal gait. Psych: Awake, alert, with orientation to person, place and time. Behavior, mood, and affect are within normal limits. Vital Signs: 09:36 BP 103 / 65; Pulse 97; Resp 16 S; Temp 98.7(TE); Pulse Ox 100% on R/A; Weight 95.25 kg aa5 (R); Height 5 ft. 3 in. (160.02 cm) (R); 09:36 Body Mass Index 37.20 (95.25 kg, 160.02 cm) aa5 MDM: 09:36 Patient medically screened. kb 12:04 Data reviewed: vital signs, nurses notes. Data interpreted: Pulse oximetry: on room air kb is 100 %. Interpretation: normal. Counseling: I had a detailed discussion with the patient and/or guardian regarding: the historical points, exam findings, and any diagnostic results supporting the discharge/admit diagnosis, lab results, the need for outpatient follow up, a family practitioner, to return to the emergency department if symptoms worsen or persist or if there are any questions or concerns that arise at home. 08/01 09:42 Order name: Flu; Complete Time: 10:52 kb 08/01 09:42 Order name: COVID-19 SARS RT PCR (Document "Date of Onset" if Symptomatic); Complete kb Time: 11:55 Administered Medications: No medications were administered Disposition Summary: 08/01/21 12:05 Discharge Ordered Location: Home kb Condition: Stable kb Diagnosis - Acute upper respiratory infection, unspecified kb Followup: kb - With: Emergency Department - When: As needed - Reason: Worsening of condition Followup: kb - With: Private Physician - When: 2 - 3 days - Reason: Recheck today's complaints, Continuance of care, Re-evaluation by your physician Discharge Instructions: - Discharge Summary Sheet kb - Upper Respiratory Infection, Adult, [id number] kb - Viral Respiratory Infection, [id number] kb Forms: - Medication Reconciliation Form kb - Thank You Letter kb - Antibiotic Education kb - Prescription Opioid Use kb - Work release form ss Signatures: Dispatcher [employer] Ekta Ortega, RAIL DIRECTOR-C RAIL DIRECTOR-Tigist Walsh, RN RN aa5
[2021-08-01 12:19] VITALS: BP 103/65; TEMP 98.7; O2SAT 100
== END 2021-08-01 12:14 | disposition home or self-care (01) ==
LOC: ER 09:30
DX: J06.9 Acute upper respiratory infection, unspecified (principal); Z20.822 Contact with and (suspected) exposure to COVID-19; Z88.6 Allergy status to analgesic agent; J45.909 Unspecified asthma, uncomplicated
CPT/HCPCS: 87804 ×2; 99283; U0003